=== PATIENT | male | born 1940 | race Caucasian/White ===

== ENCOUNTER → 2017-07-22 | Outpatient (CLI) | payer MEDICARE ==
[~2017-07-22] MED LIST: ASPI1TAB PO; ATEN50TA2 PO; ATOR1TAB19 PO; AUGM875T28 PO; COUM2.5T17 PO; DIGO0.126 OR; LEVO750T PO; MAGN30TA2 PO; NEUR600T PO; NIASPAN PO; RAMI5CAP PO; ROXI1TAB2 PO; TYLE325T5 PO; WARF2.5T38 PO
[2017-07-22 11:26] LABS: BASO % 0.4 % (0.0-1.0); EOS # 0.1 10^3/uL (0.0-0.50); EOS % 2.1 % (0.0-3.0); IMMATURE GRANULOCYTE % 0.2 % (0-0); LYMPH # 0.7 10^3/uL (1.5-4.5); LYMPH % 15.8 % (24.0-44.0); MEAN CORPUSCULAR HEMOGLOBIN 32.3 pg (27.0-33.0); MEAN CORPUSCULAR HGB CONC 33.3 g/dl (32.0-36.5); MEAN CORPUSCULAR VOLUME 97.2 fl (80.0-96.0); MONO # 0.5 10^3/uL (0.0-0.8); MONO % 10.2 % (0.0-5.0); NEUTROPHILS # 3.3 10^3/uL (1.8-7.7); NEUTROPHILS % 71.3 % (36.0-66.0); RED CELL DISTRIBUTION WIDTH 12.3 % (11.5-14.5); WHITE BLOOD COUNT 4.7 10^3/uL (4.0-10.0)
[2017-07-22 11:45] LABS: INR 1.99
[2017-07-22 12:08] LABS: ALBUMIN 3.6 GM/DL (3.2-5.2); ALKALINE PHOSPHATASE 63 U/L (45-117); ALT/SGPT 22 U/L (12-78); ANION GAP 4 MEQ/L (8-16); AST/SGOT 26 U/L (15-37); BILIRUBIN,TOTAL 0.7 MG/DL (0.2-1.0); BLOOD UREA NITROGEN 21 MG/DL (7-18); CALCIUM LEVEL 8.7 MG/DL (8.8-10.2); CARBON DIOXIDE LEVEL 31 MEQ/L (21-32); CHLORIDE LEVEL 105 MEQ/L (98-107); GLOMERULAR FILTRATION RATE > 60.0 (>42); GLUCOSE, FASTING 81 MG/DL (83-110); POTASSIUM SERUM 4.6 MEQ/L (3.5-5.1); SODIUM LEVEL 140 MEQ/L (136-145); TOTAL PROTEIN 6.6 GM/DL (6.4-8.2)
--- NOTE | 2017-07-22 16:42 | REP ---
PA and lateral chest: Comparison is 03/01/2014. There are no acute infiltrates or effusions. The interstitium is normal. There is a stable granuloma inferiorly in the right lung, unchanged. The lung daley otherwise clear. Cardiac size is upper normal. There is a single lead pacemaker / AICD, unchanged. Impression: Negative chest. No interval change. Half Signed by Cesar Stewart MD 07/22/2017 04:34 P
== END ==
LOC: M LAB 10:51
PROVIDERS: ATTEND Internal Medicine Clinical Cardiac Electrophysiology
DX: I42.0 Dilated cardiomyopathy (principal); I48.2 Chronic atrial fibrillation; Z95.810 Presence of automatic (implantable) cardiac defibrillator

== ENCOUNTER → 2018-02-17 | Outpatient (CLI) | payer MEDICARE | LOC: M WUC 17:36 | DX: S60.410A Abrasion of right index finger, initial encounter (principal); X58.XXXA Exposure to other specified factors, initial encounter; Y92.89 Other specified places as the place of occurrence of the external cause | CPT/HCPCS: 73140 ==

== ENCOUNTER 2020-12-15 03:11 | Inpatient (IN) | payer MEDICARE ==
[~2020-12-15] VITALS: Ht 180.3 cm; Wt 83.1 kg
[2020-12-15] VITALS (22 sets, daily range): BP systolic 92–135; BP diastolic 53–78
--- OUTSIDE RECORDS SUMMARY | 2020-12-15 03:15 | CCD | Continuity of Care Document ---
Author Author Jacek KERN RN Organization Unknown Address [address] [place] [address] Phone [phone] Care Team Providers Care Export Manager Name Role Phone Kathy Moreland MD AUTM [phone] Problems Active Problems Provider Date Atrial fibrillation Onset: 08/30/2012 Chronic systolic heart failure Onset: Hyperlipidemia Onset: 08/28/2012 Automatic implantable cardiac defibrillator in situ Onset: 08/28/2012 Primary cardiomyopathy Onset: 08/28/2012 Mitral and aortic incompetence Onset: Benign essential hypertension Javon Lutz MD Onset: 05/2015 Mitral valve disorder Javon Lutz MD Onset: 07/01/2015 Chronic ischemic heart disease Taina Kern RN, LAMP SHADE SEWER Onset: 09/07/2016 Chronic atrial fibrillation Taina Kern RN, LAMP SHADE SEWER Onset: Long-term current use of anticoagulant Javon Lutz MD O nset: 03/01/2017 Mixed hyperlipidemia Javon Lutz MD Onset: 03/01/2017 Preoperative cardiovascular examination Gilmar Sutton MD Onset: 10/02/2018 Paroxysmal atrial fibrillation Sean Vargas MD Onset : 03/02/2018 Social History Type Date Description Comments Sex Unknown ETOH Use Infrequent alcohol Tobacco Use Start: Unknown Patient has never smoked Recreational Drug Use Denies Drug Use Allergies, Adverse Reactions, Alerts Description No Known Drug Allergies Medications Active Medications SIG Qnty Indications Ordering Provide r Date Jantoven 2.5mg Tablets Take One Tablet By Mouth Every Day Or as Directed 100tabs Gilmar Sutton MD 10/20/2020 Carvedilol 25mg Tablets take 1 tablet by mouth twice daily. maximum daily dose is 3 180tabs Lorne Real MD 10/02/2018 Digoxin 250mcg Tablets take 1 tablet by mouth every day 90tadmitry Real MD 01/13/20 16 Ramipril 5mg Capsules take 1 capsule by mouth every day 90caps Frantz Headley MD 01/13/2016 Mag-SR 535(64Mg) mg Tablets ER one po bid Unknown 06/16/2015 Lipitor 10mg Tablets one po q d Unknown 06/16/2015 Aspirin Adult Low Dose 81mg Tablet s DR 1 by mouth every day Unknown Amoxicillin 500mg Capsules 4 tab by mouth prior to dental procedure Unknown Terbinafine HCL 250mg Tablets 1 by mouth once daily Unknown Immunizations Description No Information Available Vital Signs Date Vital Result Comment 03/15/2019 11:53am BP Systolic 100 mmHg BP Diastolic 58 mmHg Heart Rate 72 /min Height 71 inches 5'11" Weight 190.00 lb BMI (Body Mass Index) 26.5 kg/m2 10/02/2018 3:04pm BP Systolic 102 mmHg BP Diastolic 60 mmHg Heart Rate 64 /min Height 71 inches 5'11" Weight 190.00 lb BMI (Body Mass Index) 26.5 kg/m2 Results Test Acquired Date Facility Test Result H/L Range Note Order 08/01/2020 [facility] Icd Remote Check Prof & Tech <pending> Optivol Remote Check Prof & Tech <pending> Procedures Date Code Description Status 08/01/2020 34758 Interrogation Device Implantable Cardiovascular Monitoring System Completed Medical Devices Description No Information Available Encounters Description No Information Available Assessments Date Code Description Provider 08/01/2020 Z95.810 Presence of automatic (implantab le) cardiac defibrillator Margie Gutierrez NP 08/01/2020 I42.0 Dilated cardiomyopathy Margie Urbina NP 08/01/2020 I50.22 Chronic systolic (congestive) he art failure Margie Gutierrez NP Plan of Treatment Future Appointment(s):* 12/15/2020 11:00 am - [facility]Home Draws at [place] [facility] 03/15/2019 - Sean Real MD* Z95.810 Presence of automatic (implantable) cardiac defibrillator * I42.0 Dilated cardiomyopathy * I50.22 Chronic systolic (congestive) heart failure * Z79.01 snf (current) use of anticoagulants * I10 Essential (primary) hypertension * E78.2 Mixed hyperlipidemia * I48.2 Chronic atrial fibrillation * I34.0 Nonrheumatic mitral (valve) insufficiency* Recommendations:* The patient is doing quite well. He shows no signs of active heart failure. His device checks are satisfactory. We will have him return in 12 months for further clinical review, and he will have his echocardiogram repeated prior to that visit. Functional Status Description No Information Available Mental Status Description No Information Available Referrals Description No Information Available
--- OUTSIDE RECORDS SUMMARY | 2020-12-15 03:15 | CCD | Continuity of Care Document ---
Author Author [facility] Organization Unknown Address [address] [place] [address] Phone [phone] Care Team Providers Care Welding Machine Setter Name Role Phone Kathy Moreland MD [facility] [phone] Problems Active Problems Provider Date Atrial fibrillation Onset: 08/30/2012 Chronic systolic heart failure Onset: Hyperlipidemia Onset: 08/28/2012 Automatic implantable cardiac defibrillator in situ Onset: 08/28/2012 Primary cardiomyopathy Onset: 08/28/2012 Mitral and aortic incompetence Onset: Benign essential hypertension Javon Lutz MD Onset: 05/2015 Mitral valve disorder Javon Lutz MD Onset: 07/01/2015 Chronic ischemic heart disease Taina Kern RN, COMMUTATOR ASSEMBLER Onset: 09/07/2016 Chronic atrial fibrillation Taina Kern RN, COMMUTATOR ASSEMBLER Onset: Long-term current use of anticoagulant Javon [...] take 1 tablet by mouth every day 90tabs Sean Real MD 01/13/20 16 Ramipril 5mg Capsules [...] <pending> Procedures Date Code Description Status 08/01/2020 17937 Interrogation Device Implantable Cardiovascular Monitoring System Completed Medical Devices Description No Information Available Encounters Description No Information Available Assessments Date Code Description Provider 08/01/2020 Z95.810 Presence of automatic (implantab le) cardiac defibrillator Margie Gutierrez NP 08/01/2020 I42.0 Dilated cardiomyopathy Margie Urbina NP 08/01/2020 I50.22 Chronic systolic (congestive) he art failure Margie Gutierrez NP Plan of Treatment Future Appointment(s):* 12/08/2020 9:45 am - [facility]Home Draws at [place] [facility] * 12/09/2020 3:30 pm - [place] MANAGER LAB/Device (415) at [place] Office 03/15/2019 - Sean Real MD* Z95.810 Presence of automatic (implantable) cardiac defibrillator * I42.0 Dilated cardiomyopathy * I50.22 Chronic systolic (congestive) heart failure * Z79.01 intermediate (current) use of anticoagulants * I10 Essential [...]
--- OUTSIDE RECORDS SUMMARY | 2020-12-15 03:15 | CCD | Continuity of Care Document ---
Author Author [facility] Organization Unknown Address [address] [place] [address] Phone [phone] Care Team Providers Care Performance Test Consultant Name Role Phone Kathy Moreland MD [facility] [phone] Problems Active Problems Provider Date Atrial fibrillation Onset: 08/30/2012 Chronic systolic heart failure Onset: Hyperlipidemia Onset: 08/28/2012 Automatic implantable cardiac defibrillator in situ Onset: 08/28/2012 Primary cardiomyopathy Onset: 08/28/2012 Mitral and aortic incompetence Onset: Benign essential hypertension Javon Lutz MD Onset: 05/2015 Mitral valve disorder Javon Lutz MD Onset: 07/01/2015 Chronic ischemic heart disease Taina Kern RN, BLOCK ENGRAVER Onset: 09/07/2016 Chronic atrial fibrillation Taina Kern RN, BLOCK ENGRAVER Onset: Long-term current use of anticoagulant Javon [...] <pending> Procedures Date Code Description Status 08/01/2020 79366 Interrogation Device Implantable Cardiovascular Monitoring System Completed Medical Devices Description No Information Available Encounters Description No Information Available Assessments Date Code Description Provider 08/01/2020 Z95.810 Presence of automatic (implantab le) cardiac defibrillator Margie Gutierrez NP 08/01/2020 I42.0 Dilated cardiomyopathy Margie Urbina NP 08/01/2020 I50.22 Chronic systolic (congestive) he art failure Margie Gutierrez NP Plan of Treatment Future Appointment(s):* 12/09/2020 3:30 pm - Taina Kern RN, BLOCK ENGRAVER at [facility] 03/15/2019 - Sean Real MD* Z95.810 Presence of automatic (implantable) cardiac defibrillator * I42.0 Dilated cardiomyopathy * I50.22 Chronic systolic (congestive) heart failure * Z79.01 intermodal owner operator truck driver (current) use of anticoagulants * I10 Essential [...]
--- OUTSIDE RECORDS SUMMARY | 2020-12-15 03:15 | CCD | Continuity of Care Document ---
Author Author [facility] Organization Unknown Address [address] [place] [address] Phone [phone] Care Team Providers Care Wash Oil Pump Operator Helper Name Role Phone Kathy Moreland MD [facility] [phone] Problems Active Problems Provider Date Atrial fibrillation Onset: 08/30/2012 Chronic systolic heart failure Onset: Hyperlipidemia Onset: 08/28/2012 Automatic implantable cardiac defibrillator in situ Onset: 08/28/2012 Primary cardiomyopathy Onset: 08/28/2012 Mitral and aortic incompetence Onset: Benign essential hypertension Javon Lutz MD Onset: 05/2015 Mitral valve disorder Javon Lutz MD Onset: 07/01/2015 Chronic ischemic heart disease Taina Kern RN, MOTOR INSTALLER Onset: 09/07/2016 Chronic atrial fibrillation Taina Kern RN, MOTOR INSTALLER Onset: Long-term current use of anticoagulant Javon [...] <pending> Procedures Date Code Description Status 08/01/2020 86195 Interrogation Device Implantable Cardiovascular Monitoring System Completed Medical Devices Description No Information Available Encounters Description No Information Available Assessments Date Code Description Provider 08/01/2020 Z95.810 Presence of automatic (implantab le) cardiac defibrillator Margie Gutierrez NP 08/01/2020 I42.0 Dilated cardiomyopathy Margie Urbina NP 08/01/2020 I50.22 Chronic systolic (congestive) he art failure Margie Gutierrez NP Plan of Treatment Future Appointment(s):* 12/02/2020 11:15 am - [facility]Home Draws at [place] Coumadin [facility] * 12/09/2020 3:30 pm - [place] MANAGER INTERN/Device (415) at [place] Office 03/15/2019 - Sean Real MD* Z95.810 Presence of automatic (implantable) cardiac defibrillator * I42.0 Dilated cardiomyopathy * I50.22 Chronic systolic (congestive) heart failure * Z79.01 USP (current) use of anticoagulants * I10 Essential [...]
--- OUTSIDE RECORDS SUMMARY | 2020-12-15 03:16 | CCD | Continuity of Care Document ---
Author Author [facility] Organization Unknown Address [address] [place] [address] Phone [phone] Care Team Providers Care Client Services Representative Name Role Phone Kathy Moreland MD AUT [phone] Problems Active Problems Provider Date Atrial fibrillation Onset: 08/30/2012 Chronic systolic heart failure Onset: Hyperlipidemia Onset: 08/28/2012 Automatic implantable cardiac defibrillator in situ Onset: 08/28/2012 Primary cardiomyopathy Onset: 08/28/2012 Mitral and aortic incompetence Onset: Benign essential hypertension Javon Lutz MD Onset: 05/2015 Mitral valve disorder Javon Lutz MD Onset: 07/01/2015 Chronic ischemic heart disease Taina Kern RN, MILKING SYSTEM INSTALLER Onset: 09/07/2016 Chronic atrial fibrillation Taina Kern RN, MILKING SYSTEM INSTALLER Onset: Long-term current use of anticoagulant [...] SIG Qnty Indications Ordering Provide r Date Carvedilol 25mg Tablets take 1 tablet by [...] DR 1 by mouth every day Unknown Warfarin Sodium 2.5mg Tablets take 1 tablet by mouth daily or as directed 100tabs Gilmar purdy MD Amoxicillin 500mg Capsules 4 tab by mouth [...] Test Result H/L Range Note Order 08/01/2020 [facility]iology Icd Remote Check Prof & Tech <pending> Optivol Remote Check Prof & Tech <pending> Order 04/15/2020 [facility] Cardiology Icd Single Program <pending> Optivol In Office <pending> Procedures Date Code Description Status 08/01/2020 31417 Interrogation Device Implantable Cardiovascular Monitoring System Completed 04/15/2020 54632 Implant Cardiovascular Monitorin g System Completed 04/15/2020 66790 Single Lead Implant Cardioverter -Defibrillator Completed Medical Devices Description No Information Available Encounters Description No Information Available Assessments Date Code Description Provider 08/01/2020 Z95.810 Presence of automatic (implantab le) cardiac defibrillator Margie Gutierrez NP 08/01/2020 I42.0 Dilated cardiomyopathy Margie Urbina NP 08/01/2020 I50.22 Chronic systolic (congestive) he art failure Margie Gutierrez NP 04/15/2020 Z95.810 Presence of automatic (implantab le) cardiac defibrillator Taina Kern RN, MILKING SYSTEM INSTALLER 04/15/2020 I48.11 Longstanding persistent atrial f ibrillation Taina Kern RN, MILKING SYSTEM INSTALLER 04/15/2020 I42.0 Dilated cardiomyopathy Taina carrillo RN, MILKING SYSTEM INSTALLER 04/15/2020 I50.22 Chronic systolic (congestive) he art failure Taina Kern RN, MILKING SYSTEM INSTALLER Plan of Treatment Future Appointment(s):* 12/09/2020 3:30 pm - [place] CLINICAL SAFETY SPECIALIST/Device (415) at [place] Office 03/15/2019 - Sean Real MD* Z95.810 Presence of automatic (implantable) cardiac defibrillator * I42.0 Dilated cardiomyopathy * I50.22 Chronic systolic (congestive) heart failure * Z79.01 strapper (current) use of anticoagulants * I10 Essential [...]
--- OUTSIDE RECORDS SUMMARY | 2020-12-15 03:16 | CCD | Continuity of Care Document ---
Author Author [facility] Organization Unknown Address [address] [place] [address] Phone [phone] Care Team Providers Care Dental Coordinator Name Role Phone Kathy Moreland MD AUT [phone] Problems Active Problems Provider Date Atrial fibrillation Onset: 08/30/2012 Chronic systolic heart failure Onset: Hyperlipidemia Onset: 08/28/2012 Automatic implantable cardiac defibrillator in situ Onset: 08/28/2012 Primary cardiomyopathy Onset: 08/28/2012 Mitral and aortic incompetence Onset: Benign essential hypertension Javon Lutz MD Onset: 05/2015 Mitral valve disorder Javon Lutz MD Onset: 07/01/2015 Chronic ischemic heart disease Taina Kenr RN, DRAPERY WORKER Onset: 09/07/2016 Chronic atrial fibrillation Taina Kern RN, DRAPERY WORKER Onset: Long-term current use of anticoagulant Javon Lutz MD O nset: 03/01/2017 Mixed hyperlipidemia Javon Lutz MD Onset: 03/01/2017 Preoperative cardiovascular examination Gilmar Sutton MD Onset: 10/02/2018 Paroxysmal atrial fibrillation Sean aVrgas MD Onset : 03/02/2018 Social History Type [...] Test Result H/L Range Note Order 08/01/2020 [facility] Cardiology Icd Remote Check Prof & Tech <pending> Optivol Remote Check Prof & Tech <pending> Order 04/15/2020 [facility] Cardiology Icd Single Program <pending> Optivol In Office <pending> Procedures Date Code Description Status 08/01/2020 28831 Interrogation Device Implantable Cardiovascular Monitoring System Completed 04/15/2020 58477 Implant Cardiovascular Monitorin g System Completed 04/15/2020 60188 Single Lead Implant Cardioverter -Defibrillator Completed Medical [...] (implantab le) cardiac defibrillator Taina Kern RN, DRAPERY WORKER 04/15/2020 I48.11 Longstanding persistent atrial f ibrillation Taina Kern RN, DRAPERY WORKER 04/15/2020 I42.0 Dilated cardiomyopathy Taina carrillo RN, DRAPERY WORKER 04/15/2020 I50.22 Chronic systolic (congestive) he art failure Taina Kern RN, DRAPERY WORKER Plan of Treatment Future Appointment(s):* 10/06/2020 11:45 am - [facility] Draws at [facility] * 12/09/2020 3:30 pm - [place] TRUCK WASHER/Device (415) at [place] Office 03/15/2019 - Sean Real MD* Z95.810 Presence of automatic (implantable) cardiac defibrillator * I42.0 Dilated cardiomyopathy * I50.22 Chronic systolic (congestive) heart failure * Z79.01 termite technician (current) use of anticoagulants * I10 Essential [...]
--- OUTSIDE RECORDS SUMMARY | 2020-12-15 03:16 | CCD | Continuity of Care Document ---
Author Author [facility] Organization Unknown Address [address] [place] [address] Phone [phone] Care Team Providers Care Licensing Coordinator Name Role Phone Kathy Moreland MD [facility] [phone] Problems Active Problems Provider Date Atrial fibrillation Onset: 08/30/2012 Chronic systolic heart failure Onset: Hyperlipidemia Onset: 08/28/2012 Automatic implantable cardiac defibrillator in situ Onset: 08/28/2012 Primary cardiomyopathy Onset: 08/28/2012 Mitral and aortic incompetence Onset: Benign essential hypertension Javon Lutz MD Onset: 05/2015 Mitral valve disorder Javon Lutz MD Onset: 07/01/2015 Chronic ischemic heart disease Taina Kern RN, CONSERVATION SCIENTIST Onset: 09/07/2016 Chronic atrial fibrillation Taina Kern RN, CONSERVATION SCIENTIST Onset: Long-term current use of anticoagulant Javon Lutz MD O nset: 03/01/2017 Mixed hyperlipidemia Javon Lutz MD Onset: 03/01/2017 Preoperative cardiovascular examination Gilamr Sutton MD Onset: 10/02/2018 Paroxysmal atrial fibrillation [...] <pending> Procedures Date Code Description Status 08/01/2020 18063 Interrogation Device Implantable Cardiovascular Monitoring System Completed Medical Devices Description No Information Available Encounters Description No Information Available Assessments Date Code Description Provider 08/01/2020 Z95.810 Presence of automatic (implantab le) cardiac defibrillator Margie Gutierrez NP 08/01/2020 I42.0 Dilated cardiomyopathy Margie Urbina NP 08/01/2020 I50.22 Chronic systolic (congestive) he art failure Margie Gutierrez NP Plan of Treatment Future Appointment(s):* 11/21/2020 8:30 am - [facility]/Home Draws at [place] [facility] * 12/09/2020 3:30 pm - [place] GRAIN ELEVATOR AGENT/Device (415) at [place] Office 03/15/2019 - Sean Real MD* Z95.810 Presence of automatic (implantable) cardiac defibrillator * I42.0 Dilated cardiomyopathy * I50.22 Chronic systolic (congestive) heart failure * Z79.01 assisted (current) use of anticoagulants * I10 Essential [...]
--- OUTSIDE RECORDS SUMMARY | 2020-12-15 03:16 | CCD | Continuity of Care Document ---
Author Author [facility] Organization Unknown Address [address] [place] [address] Phone [phone] Care Team Providers Care Teletype Operator Name Role Phone Kathy Moreland MD [facility] [phone] Problems Active Problems Provider Date Atrial fibrillation Onset: 08/30/2012 Chronic systolic heart failure Onset: Hyperlipidemia Onset: 08/28/2012 Automatic implantable cardiac defibrillator in situ Onset: 08/28/2012 Primary cardiomyopathy Onset: 08/28/2012 Mitral and aortic incompetence Onset: Benign essential hypertension Javon Lutz MD Onset: 05/2015 Mitral valve disorder Javon Lutz MD Onset: 07/01/2015 Chronic ischemic heart disease Taina Kern RN, PBX INSTALLER Onset: 09/07/2016 Chronic atrial fibrillation Taina Kern RN, PBX INSTALLER Onset: Long-term current use of anticoagulant [...] <pending> Procedures Date Code Description Status 08/01/2020 88848 Interrogation Device Implantable Cardiovascular Monitoring System Completed Medical Devices Description No Information Available Encounters Description No Information Available Assessments Date Code Description Provider 08/01/2020 Z95.810 Presence of automatic (implantab le) cardiac defibrillator Margie Gutierrez NP 08/01/2020 I42.0 Dilated cardiomyopathy Margie Urbina NP 08/01/2020 I50.22 Chronic systolic (congestive) he art failure Margie Gutierrez NP Plan of Treatment Future Appointment(s):* 11/10/2020 11:45 am - [facility]Home Draws at [place] [facility] * 12/09/2020 3:30 pm - [place] WALL WASHER/Device (415) at [place] Office 03/15/2019 - Sean Real MD* Z95.810 Presence of automatic (implantable) cardiac defibrillator * I42.0 Dilated cardiomyopathy * I50.22 Chronic systolic (congestive) heart failure * Z79.01 correction (current) use of anticoagulants * I10 Essential [...]
--- OUTSIDE RECORDS SUMMARY | 2020-12-15 03:16 | CCD | Continuity of Care Document ---
Author Author [facility] Organization Unknown Address [address] [place] [address] Phone [phone] Care Team Providers Care Stained Glass Joiner Name Role Phone Kathy Moreland MD AUT [phone] Problems Active Problems Provider Date Atrial fibrillation Onset: 08/30/2012 Chronic systolic heart failure Onset: Hyperlipidemia Onset: 08/28/2012 Automatic implantable cardiac defibrillator in situ Onset: 08/28/2012 Primary cardiomyopathy Onset: 08/28/2012 Mitral and aortic incompetence Onset: Benign essential hypertension Javon Lutz MD Onset: 05/2015 Mitral valve disorder Javon Lutz MD Onset: 07/01/2015 Chronic ischemic heart disease Taina Kern RN, EXPANDED FUNCTION DENTAL ASSISTANT Onset: 09/07/2016 Chronic atrial fibrillation Taina Kern RN, EXPANDED FUNCTION DENTAL ASSISTANT Onset: Long-term current use of anticoagulant Javon [...] Test Result H/L Range Note Order 08/01/2020 [facility] Cardiology Icd Remote Check Prof & Tech <pending> Optivol Remote Check Prof & Tech <pending> Order 04/15/2020 [facility] Cardiology Icd Single Program <pending> Optivol In Office <pending> Procedures Date Code Description Status 08/01/2020 79847 Interrogation Device Implantable Cardiovascular Monitoring System Completed 04/15/2020 07240 Implant Cardiovascular Monitorin g System Completed 04/15/2020 23251 Single Lead Implant Cardioverter -Defibrillator Completed Medical [...] (implantab le) cardiac defibrillator Taina Kern RN, EXPANDED FUNCTION DENTAL ASSISTANT 04/15/2020 I48.11 Longstanding persistent atrial f ibrillation Taina Kern RN, EXPANDED FUNCTION DENTAL ASSISTANT 04/15/2020 I42.0 Dilated cardiomyopathy Taina carrillo RN, EXPANDED FUNCTION DENTAL ASSISTANT 04/15/2020 I50.22 Chronic systolic (congestive) he art failure Taina Kern RN, EXPANDED FUNCTION DENTAL ASSISTANT Plan of Treatment Future Appointment(s):* 10/20/2020 8:45 am - [facility] Draws at [facility] * 12/09/2020 3:30 pm - [place] DIAL MOUNTER/Device (415) at [place] Office 03/15/2019 - Sean Real MD* Z95.810 Presence of automatic (implantable) cardiac defibrillator * I42.0 Dilated cardiomyopathy * I50.22 Chronic systolic (congestive) heart failure * Z79.01 moth exterminator (current) use of anticoagulants * I10 Essential [...]
--- OUTSIDE RECORDS SUMMARY | 2020-12-15 03:16 | CCD ---
Author Author [facility] Address Unknown Phone Unavailable Care Team Providers Care Cause Analyst Name Role Phone Telly Moreland MD Unavailable Unavailable MeesterTelly MD Unavailable Unavailable MeesterTelly MD Unavailable Unavailable MeesterTelly MD Unavailable Unavailable MeesterTelly MD Unavailable Unavailable MeesterTelly MD Unavailable Unavailable MeesterTelly MD Unavailable Unavailable MeesterTelly MD Unavailable Unavailable MeesterTelly MD Unavailable Unavailable MeesterTelly MD Unavailable Unavailable MeesterTelly MD Unavailable Unavailable MeesterTelly MD Unavailable Unavailable MeesterTelly MD Unavailable Unavailable MeesterTelly MD Unavailable Unavailable MeesterTelly MD Unavailable Unavailable MeesterTelly MD Unavailable Unavailable Meester, Telly Chavez MD Unavailable Unavailable Meester, Telly Chavez MD Unavailable Unavailable Meester, Telly Chavez MD Unavailable Unavailable Meester, Telly Chavez MD Unavailable Unavailable MeesterTelly MD Unavailable Unavailable Meester, Telly Chavez MD Unavailable Unavailable Meester, Telly Chavez MD Unavailable Unavailable Meester, Telly Chavez MD Unavailable Unavailable Meester, Telly Chavez MD Unavailable Unavailable Meester, Telly Chavez MD Unavailable Unavailable Meester, Telly Chavez MD Unavailable Unavailable Meester, Telly Chavez MD Unavailable Unavailable Meester, Telly Chavez MD Unavailable Unavailable Meester, Telly Chavez MD Unavailable Unavailable Meester, Telly Chavez MD Unavailable Unavailable Meester, Telly Chavez MD Unavailable Unavailable Meester, Telly Chavez MD Unavailable Unavailable Meester, Telly Chavez MD Unavailable Unavailable Meester, Telly Chavez MD Unavailable Unavailable Meester, Telly Chavez MD Unavailable Unavailable Meester, Telly Chavez MD Unavailable Unavailable Meester, Telly Chavez MD Unavailable Unavailable Meester, Telly Chavez MD Unavailable Unavailable Meester, Telly Chavez MD Unavailable Unavailable Meester, Telly Chavez MD Unavailable Unavailable Meester, Telly Chavez MD Unavailable Unavailable Meester, Telly Chavez MD Unavailable Unavailable Meester, Telly Chavez MD Unavailable Unavailable Meester, Telly Chavez MD Unavailable Unavailable Meester, Telly Chavez MD Unavailable Unavailable Meester, Telly Chavez MD Unavailable Unavailable Meester, Telly Chavez MD Unavailable Unavailable Meester, Telly Chavez MD Unavailable Unavailable Meester, Telly Chavez MD Unavailable Unavailable Meester, Telly Chavez MD Unavailable Unavailable Meester, Telly Chavez MD Unavailable Unavailable Meester, Telly Chavez MD Unavailable Unavailable Meester, Telly Chavez MD Unavailable Unavailable Meester, Telly Chavez MD Unavailable Unavailable Meester, Telly Chavez MD Unavailable Unavailable Meester, Telly Chavez MD Unavailable Unavailable Meester, Telly Chavez MD Unavailable Unavailable Meester, Telly Chavez MD Unavailable Unavailable Meester, Telly Chavez MD Unavailable Unavailable Meester, Telly Chavez MD Unavailable Unavailable Meester, Telly Chavez MD Unavailable Unavailable Meester, Telly Chavez MD Unavailable Unavailable Meester, Telly Chavez MD Unavailable Unavailable Meester, Telly Chavez MD Unavailable Unavailable Meester, Telly Chavez MD Unavailable Unavailable Meester, Telly Chavez MD Unavailable Unavailable Meester, Telly Chavez MD Unavailable Unavailable DelvalleMaritza barry RESTORATIVE REHAB AIDE Unavailable Unavailable DelvalleMelanieMaritza RESTORATIVE REHAB AIDE Unavailable Unavailable Delvalle, Maritza RESTORATIVE REHAB AIDE Unavailable Unavailable Delvalle, Maritza RESTORATIVE REHAB AIDE Unavailable Unavailable Delvalle, Maritza RESTORATIVE REHAB AIDE Unavailable Unavailable Delvalle, Maritza RESTORATIVE REHAB AIDE Unavailable Unavailable Delvalle, Maritza RESTORATIVE REHAB AIDE Unavailable Unavailable Delvalle, Maritza RESTORATIVE REHAB AIDE Unavailable Unavailable Delvalle, Maritza RESTORATIVE REHAB AIDE Unavailable Unavailable Delvalle, Maritza RESTORATIVE REHAB AIDE Unavailable Unavailable Delvalle, Maritza RESTORATIVE REHAB AIDE Unavailable Unavailable Re-disclosure Warning The records that you are about to access may contain information from federally-assisted alcohol or drug abuse programs. If such information is present, then the following federally mandated warning applies: This information has been disclosed to you from records protected by federal confidentiality rules (42 CFR part 2). The federal rules prohibit you from making any further disclosure of this information unless further disclosure is expressly permitted by the written consent of the person to whom it pertains or as otherwise permitted by 42 CFR part 2. A general authorization for the release of medical or other information is NOT sufficient for this purpose. The Federal rules restrict any use of the information to criminally investigate or prosecute any alcohol or drug abuse patient.The records that you are about to access may contain highly sensitive health information, the redisclosure of which is protected by Article 27-F of the [facility] Public Health law. If you continue you may have access to information: Regarding HIV / AIDS; Provided by facilities licensed or operated by the [facility] Office of Mental Health; or Provided by the [facility] Office for People With Developmental Disabilities. If such information is present, then the following [facility] mandated warning applies: This information has been disclosed to you from confidential records which are protected by state law. State law prohibits you from making any further disclosure of this information without the specific written consent of the person to whom it pertains, or as otherwise permitted by law. Any unauthorized further disclosure in violation of state law may result in a fine or custodial sentence or both. A general authorization for the release of medical or other information is NOT sufficient authorization for further disc losure. Family History Family Member Name Family Member Gender Family Member Status Date o f Status Description Data Source(s) Unknown Male Problem [facility] Unknown [facility] Unknown Unknown Problem [facility] Unknown Unknown Problem [facility] ([facility]) father Unknown Female Encounters Encounter Providers Location Date Indications Data Source(s ) Outpatient Attender: Maritza acuña 08/01/2020 12:30:00 PM EDT [facility] ([facility]) Outpatient Attender: Kathy Moreland MD 05/2020 02:10:00 PM EDT - 07/01/2020 02:11:00 PM EDT E78.00, I42.9 [facility] E78.00, I42.9 Patient discharged. Outpatient Attender: Kathy Baires Office 05/2020 10:00:00 AM EDT [facility] ([facility] Outpatient Attender: Kathy Baires Office 09:15:00 AM EDT [facility] ([facility] Medications Medication Brand Name Start Date Product Form Dose Route Admi nistrative Instructions Pharmacy Instructions Status Indications Reaction Description Data Source(s) Warfarin Sodium 2.5 MG Oral Tablet [Jantoven] Jantoven 10/20/2020 12:00:00 AM EST active [facility]) terbinafine 250 MG Oral Tablet Terbinafine HCL 07/01/2020 12:00:00 AM EDT ORAL active [facility] ([facility] Doxycycline Monohydrate 100 MG Oral Capsule Doxycycline Sullivan hydrate 11/16/2019 12:00:00 AM EST ORAL active M EDENT ([facility], [facility]) Insurance Providers Payer name Policy type / Coverage type Policy ID Covered democrat ID Covered democrat's relationship to coy Policy Coy Plan Information AARP HEALTH CARE OPTIONS [id number] SP [id number] MEDICARE [id number] SP [id number] A MEDICARE B [id number] P [id number] MEDICARE A [id number] P [id number] [facility] AARP [id number] P [id number] Aarp Commercial [id number] Self [id number] [place] Primary [id number] Self [id number] Aarp Commercial [id number] Self [id number] Medicare [facility] Medicare Primary [id number] Self [id number] DME Jurisdiction A NHIC C [id number] SELF [id number] [facility] AARP Supplemental F [id number] SELF [id number] Medicare C [id number] SELF [id number] Medicare C [id number] SELF [id number] MEDICARE A [id number] P [id number] First [place] Commercial [id number] Self [id number] [place] Commercial [id number] Self [id number] BS Of [place] Medigap Part B [id number] Self [id number] Aarp Health Care Options Medigap Part B [id number] Self [id number] [place] Primary [id number] Self [id number] Aarp Health Care Options Medigap Part B [id number] Self [id number] Medicare Natl Gov't Servi Medicare Primary [id number] Self [id number] AARP O [id number] S [id number] MEDICARE C [id number] S [id number] A Aarp Commercial [id number] Self [id number] [place] Medicare Primary [id number] Self [id number] Aarp Health Care Options Medigap Part B [id number] Self [id number] Medicare Natl Gov't Servi Medicare Primary [id number] Self [id number] Aarp Health Care Options Medigap Part B [id number] Self [id number] Medicare Natl Gov't Servi Medicare Primary [id number] Self [id number] Aarp Medigap Part B [id number] Self [id number] Medicare [facility] Medicare Primary [id number] Self [id number] Aarp Medigap Part B [id number] Self [id number] Medicare [facility] Medicare Primary [id number] Self [id number] AARP HEALTH CARE OPTIONS [id number] Patient [id number] MEDICARE [id number] Patient [id number] Aarp Medigap Part B [id number] Self [id number] Medicare [facility] Medicare Primary [id number] Self [id number] FIRST UNITED CAMBODIAN [id number] SP [id number] Aarp Commercial [id number] Self [id number] Medicare [place] Primary [id number] Self [id number] BLUE CROSS OUT OF STATE [id number] Patient [id number] Aarp Medigap Part B [id number] Self [id number] Medicare [facility] Medicare Primary [id number] Self [id number] Aarp Health Care Options Medigap Part B [id number] Self [id number] Medicare Natl Gov't Serv Medicare Primary [id number] Self [id number] Aarp Commercial [id number] Self [id number] Medicare [place] Primary [id number] Self [id number] Aarp Commercial Self Medicare [facility] Medicare Primary Self First [place](pr) Medigap Part B Self Medicare [facility] Medicare Primary Self FIRST UNITED CAMBODIAN [id number] P [id number] BS OF [place] [id number] P [id number] AARP HEALTH CARE OPTIONS -O/P [id number] 18 [id number] AARP HEALTH CARE OPTIONS -O/P UNAVAILABLE UNAVAILABLE BLUE CROSS BLUE [facility]-O/P [id number] 18 [id number] MEDICARE -O/P [id number] 18 [id number] FIRST UNITED CAM[employer] S [id number] S [id number] BCBS [place] PPO 302/307 [id number] SP [id number] A Problems, Conditions, and Diagnoses Code Display Name Description Problem Type Effective Dates Data Source(s) I42.9 Cardiomyopathy, unspecified CARDIOMYOPATHY, UNSPECIFIE D Diagnosis 07/01/2020 02:10:00 PM EDT [facility] E78.00 PURE HYPERCHOLESTEROLEMIA, UNSPECIFIED P URE HYPERCHOLESTEROLEMIA, UNSPECIFIED Diagnosis 07/01/2020 02:10:00 PM EDT [facility] Surgeries/Procedures Procedure Description Date Indications Data Source(s) Interrogation Device Implantable Cardiovascular Monitoring S ystem 08/01/2020 12:00:00 AM EDT MED[facility] ([facility]) Single Lead Implant Cardioverter-Defibrillator 020 12:00:00 AM EDT MED[facility] ([facility]) Implant Cardiovascular Monitoring System 04/15/2020 12 :00:00 AM EDT MED[facility] ([facility]) Echocardiography, Tranthoracic Complete Image Documentation 03/18/2020 12:00:00 AM EDT MED[facility] ([facility]) Interrogation Device Implantable Cardiovascular Monitoring S ystem 01/04/2020 12:00:00 AM EDT MED[facility] ([facility]) Results ID Date Data Source [id number] 08/01/2020 09:15:00 AM EDT MED[facility] ([facility]) Name Value Range Interpretation Code Description Data Rama rce(s) Supporting Document(s) Icd Remote Check Prof & Tech Laboratory test result MEDENT ([facility]) Optivol Remote Check Prof & Tech Laboratory test result MED[facility] ([facility]) ID Date Data Source [id number] 07/01/2020 10:34:00 AM EDT [facility] ([facility] Name Value Range Interpretation Code Description Data Rama rce(s) Supporting Document(s) Sodium [Moles/volume] in Serum or Plasma 140 mmol/L 136-145 [facility] ([facility] Potassium [Moles/volume] in Serum or Plasma 4.3 mmol/L 3.4-5.0 [facility] ([facility] Chloride [Moles/volume] in Serum or Plasma 100 mmol/L 98-107 [facility] ([facility] Carbon dioxide, total [Moles/volume] in Serum or Plasma 28 mmol/L 22 -29 [facility] ([facility] Glucose [Mass/volume] in Serum or Plasma 94 mg/dL 70-99 [facility] ([facility] Anion Gap 16 mmol/L 10-20 [facility] ([facility] Creatinine 0.7 mg/dL 0.7-1.2 MED[facility] ([facility] Protein [Mass/volume] in Serum or Plasma 7.2 g/dL 6.4-8.3 [facility] ([facility] Urea nitrogen [Mass/volume] in Serum or Plasma 15 mg/dL 6-20 [facility] ([facility] Calcium [Mass/volume] in Serum or Plasma 9.6 mg/dL 8.8-10.2 [facility] ([facility] Bilirubin.total [Mass/volume] in Serum or Plasma 1.1 mg/dL 0.0-1.2 MED[facility] ([facility] Albumin [Mass/volume] in Serum or Plasma 4.3 g/dL 3.5-5.2 [facility] ([facility] Alkaline phosphatase [Enzymatic activity/volume] in Serum or Plasma 85 U/L 40-129 [facility] Alanine aminotransferase [Enzymatic activity/volume] in Seru m or Plasma 18 U/L 0-41 [facility] Aspartate aminotransferase [Enzymatic activity/volume] in Serum or Plasma 29 U/L 0-40 [facility] ([facility] ID Date Data Source [id number] 07/01/2020 10:34:00 AM EDT [facility] ([facility] Name Value Range Interpretation Code Description Data Rama rce(s) Supporting Document(s) HDL Cholesterol 37 mg/dL [facility] ([facility] <content>Adult Reference Ranges:</conten t>
<content>Low HDL (major risk factor for CHD) < 40 mg/dL</content>
<content>High HDL ("negative" risk factor for CHD) > 60 mg/dL</content>
<content></content> Triglyceride [Mass/volume] in Serum or Plasma 48 mg/dL MED[facility] ([facility] Cholesterol [Mass/volume] in Serum or Plasma 109 mg/dL MED[facility] ([facility] Adult Reference Ranges: Desirable Cholesterol less than 200 mg/dL Borderline High Cholesterol 200 - 239 mg/dL High Cholesterol greater than 240 mg/dL Cholesterol in LDL [Mass/volume] in Serum or Plasma by calculation 62 mg/dL [facility] ([facility] <content>Adult Reference Ranges:</conten t>
<content>Optimal LDL Cholesterol < 100 mg/dL</content>
<content>Near Optimal/above LDL Cholesterol 100 - 129 mg/dL</content>
<content>Borderline High LDL Cholesterol 130 - 150 mg/dL</content>
<content>High LDL Cholesterol 160 - 189 mg/dL</content>
<content>Very High LDL Cholesterol >189 mg/dL</content>
<content></content> ID Date Data Source [id number] 07/01/2020 02:59:00 PM EDT [facility] Name Value Range Interpretation Code Description Data Rama rce(s) Supporting Document(s) SODIUM 140 MMOL/L 136-145 [facility] C enter POTASSIUM 4.3 MMOL/L 3.4-5.0 [facility] C enter CHLORIDE 100 MMOL/L 98-107 [facility] C enter CO2 28 MMOL/L 22-29 [facility] nter ANION GAP 16 MMOL/L 10-20 [facility] nter GLUCOSE 94 MG/DL 70-99 [facility] nter CREATININE 0.7 MG/DL 0.7-1.2 [facility] C enter BUN 15 MG/DL 6-20 [facility] nter CALCIUM 9.6 MG/DL 8.8-10.2 [facility] nter TOTAL PROTEIN 7.2 G/DL 6.4-8.3 [facility] ALBUMIN 4.3 G/DL 3.5-5.2 [facility] nter BILIRUBIN,TOTAL 1.1 MG/DL 0.0-1.2 [facility] ALKALINE PHOSPHATASE 85 U/L 40-129 [facility] AST 29 U/L 0-40 [facility] nter ALT 18 U/L 0-41 [facility] nter ID Date Data Source [id number] 07/01/2020 02:59:00 PM EDT [facility] Name Value Range Interpretation Code Description Data Rama rce(s) Supporting Document(s) CHOLESTEROL 109 MG/DL [facility] Adult Reference Ranges: Desirable Cho lesterol less than 200 mg/dL Borderline High Cholesterol 200 - 239 mg/dL High Cholesterol greater than 240 mg/dL TRIGLYCERIDES 48 MG/DL [facility] HDL CHOLESTEROL 37 MG/DL [facility] Adult Reference Ranges: Low HDL (major risk factor for CHD) < 40 mg/dL High HDL ("negative" risk factor for CHD) > 60 mg/dL LDL CHOLESTEROL (CALCULATED) 62 MG/DL [facility] Adult Reference Ranges: Optimal LDL C holesterol < 100 mg/dL Near Optimal/above LDL Cholesterol 100 - 129 mg/dL Borderline High LDL Cholesterol 130 - 150 mg/dL High LDL Cholesterol 160 - 189 mg/dL Very High LDL Cholesterol >189 mg/dL ID Date Data Source [id number] 04/15/2020 04:03:00 PM EDT [facility] ([facility]) Name Value Range Interpretation Code Description Data Rama rce(s) Supporting Document(s) Optivol In Office Laboratory test result [facility] ([facility]) Icd Single Program Laboratory test result [facility] ([facility]) ID Date Data Source [id number] 03/18/2020 10:42:00 AM EDT [facility] ([facility]) Name Value Range Interpretation Code Description Data Rama rce(s) Supporting Document(s) Echocardiogram Laboratory test result ME DENT ([facility]) ID Date Data Source [id number] 01/04/2020 01:44:00 PM EDT [facility] ([facility]) Name Value Range Interpretation Code Description Data Rama rce(s) Supporting Document(s) Optivol Remote Check Prof & Tech Laboratory test result [facility] ([facility]) Icd Remote Check Prof & Tech Laboratory test result [facility] ([facility]) Procedure Social History Code Duration Value Status Description Data Source(s ) Smoking 08/01/2020 12:00:00 AM EDT Patient has never smoked co mpleted Patient has never smoked MED[facility] ([facility]) Vital Signs ID Date Data Source UNK Name Value Range Interpretation Code Description Data Source(s) Body mass index (BMI) [Ratio] 25.1 kg/m2 25.1 k g/m2 MED[facility] ([facility]) Body height 71 [in_i] 71 [in_i] MEDENT ([facility]) 5'11" Body weight 180.00 [lb_av] 180.00 [lb_av] MEDEN T ([facility]) Body temperature 97.1 [degF] 97.1 [degF] MEDENT ([facility]) Oxygen saturation in Arterial blood by Pulse oximetry 98 % 98 % MED[facility] ([facility], [facility]) Respiratory rate 12 /min 12 /min [facility] ( [facility], [facility]) Heart rate 73 /min 73 /min [facility] Diastolic blood pressure 60 mm[Hg] 60 mm[Hg] [facility]) Systolic blood pressure 104 mm[Hg] 104 mm[Hg] [facility] ([facility], [facility]) Body weight 185.12 [lb_av] 185.12 [lb_av] MEDEN T ([facility] Heart rate 54 /min 54 /min [facility] ([facility] Diastolic blood pressure 70 mm[Hg] 70 mm[Hg] [facility] ([facility] Systolic blood pressure 110 mm[Hg] 110 mm[Hg] [facility] ([facility] Body mass index (BMI) [Ratio] 25.7 kg/m2 25.7 k g/m2 [facility]) Body height 71.5 [in_i] 71.5 [in_i] [facility] ([facility], [facility]) 5'11.50" Body weight 187.00 [lb_av] 187.00 [lb_av] MEDEN T ([facility], [facility]) Body temperature 98.8 [degF] 98.8 [degF] [facility]) Oxygen saturation in Arterial blood by Pulse oximetry 98 % 98 % MED[facility] ([facility], [facility]) Respiratory rate 17 /min 17 /min [facility] ( [facility], [facility]) Heart rate 89 /min 89 /min [facility] Diastolic blood pressure 56 mm[Hg] 56 mm[Hg] [facility] ([facility], [facility]) Systolic blood pressure 95 mm[Hg] 95 mm[Hg] [facility])
--- OUTSIDE RECORDS SUMMARY | 2020-12-15 03:16 | CCD | Continuity of Care Document ---
Author Author [facility] on [facility] Organization Unknown Address [address] [place] [address] Phone [phone] Care Team Providers Care Od Grinder Operator Name Role Phone Kathy Moreland MD [facility] [phone] Problems Active Problems Provider Date Atrial fibrillation Onset: 08/30/2012 Chronic systolic heart failure Onset: Hyperlipidemia Onset: 08/28/2012 Automatic implantable cardiac defibrillator in situ Onset: 08/28/2012 Primary cardiomyopathy Onset: 08/28/2012 Mitral and aortic incompetence Onset: Benign essential hypertension Javon Lutz MD Onset: 05/2015 Mitral valve disorder Javon Lutz MD Onset: 07/01/2015 Chronic ischemic heart disease Taina Kern RN, PRINTED CIRCUIT BOARDS LAMINATOR Onset: 09/07/2016 Chronic atrial fibrillation Taina Kern RN, PRINTED CIRCUIT BOARDS LAMINATOR Onset: Long-term current use of anticoagulant Javon [...] <pending> Procedures Date Code Description Status 08/01/2020 66567 Interrogation Device Implantable Cardiovascular Monitoring System Completed Medical Devices Description No Information Available Encounters Description No Information Available Assessments Date Code Description Provider 08/01/2020 Z95.810 Presence of automatic (implantab le) cardiac defibrillator Margie Gutierrez NP 08/01/2020 I42.0 Dilated cardiomyopathy Margie Urbina NP 08/01/2020 I50.22 Chronic systolic (congestive) he art failure Margie Gutierrez NP Plan of Treatment Future Appointment(s):* 11/03/2020 8:30 am - [facility] * 12/09/2020 3:30 pm - [facility]INGER[facility] TECHNIC[facility]/Device (415) at [facility] 03/15/2019 - Sean Real MD* Z95.810 [...]
[2020-12-15] MEDS ORDERED: RAMI1CAP24 PO (03:40)
[2020-12-15] MEDS ORDERED: JANT2.5T PO (03:40)
[2020-12-15] MEDS ORDERED: CARV25TA PO (03:40)
[2020-12-15 03:52] LABS: BASO % 0.3 % (0.0-1.0); EOS % 0.5 % (0.0-3.0); HEMATOCRIT 21.7 % (42.0-52.0); HEMOGLOBIN 7.1 g/dl (13.5-17.5); LYMPH # 1.1 10^3/uL (1.5-5.0); LYMPH % 13.5 % (24.0-44.0); MEAN CORPUSCULAR HEMOGLOBIN 31.7 pg (27.0-33.0); MEAN CORPUSCULAR HGB CONC 32.7 g/dl (32.0-36.5); MEAN CORPUSCULAR VOLUME 96.9 fl (80.0-96.0); MONO # 0.6 10^3/uL (0.0-0.8); MONO % 7.9 % (2.0-8.0); NEUTROPHILS # 6.1 10^3/uL (1.5-8.5); PLATELET COUNT, AUTOMATED 179 10^3/uL (150-450); RED BLOOD COUNT 2.24 10^6/uL (4.30-6.10); WHITE BLOOD COUNT 7.9 10^3/uL (4.0-10.0)
[2020-12-15] MEDS ORDERED: LIDOCAINE 1% MDV 20ML VIAL SC ONE (04:00)
[2020-12-15] MEDS ORDERED: NS 1,000 ML IV ONE (04:00)
[2020-12-15] MEDS ORDERED: BOOSTRIX/ADACEL VACCINE (DIPHTH/PERTUSS/ACELL/TETANUS) 0.5ML SYR IM ONE (04:00)
[2020-12-15 04:22] LABS: INR 4.05; PROTHROMBIN TIME 40.3 SECONDS (12.5-14.3)
[2020-12-15 04:23] LABS: PARTIAL THROMBOPLASTIN TIME 39.9 SECONDS (24.2-38.5)
[2020-12-15 04:24] LABS: ALBUMIN 2.3 GM/DL (3.2-5.2); ALT/SGPT 15 U/L (12-78); BILIRUBIN,DIRECT 0.1 MG/DL (0.0-0.2); BILIRUBIN,TOTAL 0.4 MG/DL (0.2-1.0); BLOOD UREA NITROGEN 34 MG/DL (7-18); CALCIUM LEVEL 7.2 MG/DL (8.8-10.2); CARBON DIOXIDE LEVEL 28 MEQ/L (21-32); CHLORIDE LEVEL 104 MEQ/L (98-107); CREATININE FOR GFR 0.88 MG/DL (0.70-1.30); GLOMERULAR FILTRATION RATE > 60.0 (>35); GLUCOSE, FASTING 156 MG/DL (70-100); LIPASE 85 U/L (73-393); POTASSIUM SERUM 5.5 MEQ/L (3.5-5.1); SODIUM LEVEL 137 MEQ/L (136-145); TOTAL PROTEIN 4.4 GM/DL (6.4-8.2)
[2020-12-15 04:47] LABS: CK-MB VALUE MASS 2.6 NG/ML (<3.6); CPK CREATINE PHOSPHOKINASE 60 U/L (39-308); MB/CK RELATIVE INDEX 4.33 (< OR =4); TROPONIN I 0.02 NG/ML (< 0.10)
--- NOTE | 2020-12-15 05:17 | REPVR ---
PROCEDURE INFORMATION: Exam: XR Chest, 1 View Exam date and time: 12/15/2020 4:50 AM Age: 80 years old Clinical indication: Chest pain; Type not specified; Additional info: Trauma TECHNIQUE: Imaging protocol: XR of the chest Views: 1 view. COMPARISON: CR Chest, 2 view PA, Lat 07/22/2017 11:17 AM FINDINGS: Tubes, catheters and devices: There is a left-sided AICD/pacemaker. Lungs: There is a calcified granuloma in the right lower lung field. There is no significant consolidation. Pleural spaces: No pleural effusions or pneumothorax identified. Heart/Mediastinum: The heart is normal in size. Bones/joints: There is no evidence of acute fracture. IMPRESSION: No evidence of acute pleural or parenchymal disease. Electronically signed by: Lamar Edgar On 12/15/2020 05:17:39 AM
--- OUTSIDE RECORDS SUMMARY | 2020-12-15 05:32 | CCD ---
Author Author [facility] Address Unknown Phone Unavailable Care Team Providers Care Corn Sheller Operator Name Role Phone Telly Moreland MD Unavailable [...] Unavailable Meester, Telly Chavez MD Unavailable Unavailable Delvalle Maritza BOOK REPAIRER Unavailable Unavailable Delvalle, Maritza BOOK REPAIRER Unavailable Unavailable Delvalle, Maritza BOOK REPAIRER Unavailable Unavailable Delvalle, Maritza BOOK REPAIRER Unavailable Unavailable Delvalle, Maritza BOOK REPAIRER Unavailable Unavailable Delvalle, Maritza BOOK REPAIRER Unavailable Unavailable Delvalle, Maritza BOOK REPAIRER Unavailable Unavailable Delvalle, Maritza BOOK REPAIRER Unavailable Unavailable Delvalle, Maritza BOOK REPAIRER Unavailable Unavailable Delvalle, Maritza BOOK REPAIRER Unavailable Unavailable Delvalle, Maritza BOOK REPAIRER Unavailable Unavailable Re-disclosure Warning The records that [...] is protected by Article 27-F of the [facility] Public Health law. If you continue you may have access to information: Regarding HIV / AIDS; Provided by facilities licensed or operated by the [facility] Office of Mental Health; or Provided by the [facility] Office for People With Developmental Disabilities. If such information is present, then the following [facility] mandated warning applies: This information has [...] law may result in a fine or senior care sentence or both. A general authorization for the release of medical or other information is NOT sufficient authorization for further disc losure. Family History Family Member Name Family Member Gender Family Member Status Date o f Status Description Data Source(s) Unknown Male Problem [facility] ([facility]) Unknown Male Problem [facility] ([facility] Unknown Unknown Problem [facility] Unknown Unknown Problem [facility] ([facility] father Unknown Female Encounters Encounter Providers Location Date Indications Data Source(s ) Outpatient Attender: Maritza acuña 08/01/2020 12:30:00 PM EDT [facility] ([facility]) Outpatient Attender: Kathy Moreland MD 05/2020 02:10:00 PM EDT - 07/01/2020 02:11:00 PM EDT E78.00, I42.9 [facility] E78.00, I42.9 Patient discharged. Outpatient Attender: Kathy Baires Office 05/2020 10:00:00 AM EDT [facility] Attender: Kathy Baires Office 09:15:00 AM EDT [facility] Medications Medication Brand Name Start Date Product Form Dose Route Admi nistrative Instructions Pharmacy Instructions Status Indications Reaction Description Data Source(s) Warfarin Sodium 2.5 MG Oral Tablet [Jantoven] Jantoven 10/20/2020 12:00:00 AM EST active [facility]) terbinafine 250 MG Oral Tablet Terbinafine HCL 07/01/2020 12:00:00 AM EDT ORAL active MED[facility] ([facility] Doxycycline Monohydrate 100 MG Oral Capsule Doxycycline Castro hydrate 11/16/2019 12:00:00 AM EST ORAL active M EDENT ([facility], [facility]) Insurance Providers Payer name Policy type / Coverage type Policy ID Covered democrat ID Covered democrat's relationship to coy Policy Coy Plan Information AARP HEALTH CARE OPTIONS [id number] SP [id number] MEDICARE [id number] SP [id number] A MEDICARE B [id number] P [id number] MEDICARE A [id number] P [id number] [facility] AARP [id number] P [id number] Aarp Commercial [id number] Self [id number] [place] Primary [id number] Self [id number] Aarp Commercial [id number] Self [id number] [place] Primary [id number] Self [id number] DME Jurisdiction A NHIC C [id number] SELF [id number] [facility] AARP Supplemental F [id number] SELF [id number] Medicare C [id number] SELF [id number] Medicare C [id number] SELF [id number] A MEDICARE A [id number] P [id number] [facility] Commercial [id number] Self [id number] [place] Commercial [id number] Self [id number] [facility]ig[facility] Part B [id number] Self [id number] Aarp Health Care Options Medigap Part B [id number] Self [id number] [place] Primary [id number] Self [id number] Aarp Health Care Options Medigap Part B [id number] Self [id number] Medicare Natl Gov't Servi Medicare Primary [id number] Self [id number] AARP O [id number] S [id number] MEDICARE C [id number] S [id number] A Aarp Commercial [id number] Self [id number] [place] Primary [id number] Self [id number] Aarp Health Care Options Medigap Part B [id number] Self [id number] Medicare [place] Gov't Servi Medicare Primary [id number] Self [id number] Aarp Health Care Options Medigap Part B [id number] Self [id number] Medicare [place] Gov't Servi Medicare Primary [id number] Self [id number] Aarp Medigap Part B [id number] Self [id number] Medicare [facility] Medicare Primary [id number] Self [id number] Aarp Medigap Part B [id number] Self [id number] Medicare [facility] Medicare Primary [id number] Self [id number] AARP HEALTH CARE OPTIONS [id number] Patient [id number] MEDICARE [id number] Patient [id number] Aarp Medigap Part B [id number] Self [id number] Medicare [facility] Medicare Primary [id number] Self [id number] FIRST [place] [id number] SP [id number] Aarp Commercial [id number] Self [id number] [place] Primary [id number] Self [id number] BLUE CROSS OUT OF STATE [id number] Patient [id number] Aarp Medigap Part B [id number] Self [id number] Medicare [facility] Medicare Primary [id number] Self [id number] Aarp Health Care Options Medigap Part B [id number] Self [id number] Medicare Natl Gov't Serv Medicare Primary [id number] Self [id number] Aarp Commercial [id number] Self [id number] [place] Primary [id number] Self [id number] Aarp Commercial Self Medicare [facility] Medicare Primary Self [employer] [place](pr) Medigap Part B Self Medicare [facility] Medicare Primary Self [employer] [place] [id number] P [id number] BS [place] [id number] P [id number] AARP HEALTH CARE OPTIONS -O/P [id number] 18 [id number] AARP HEALTH CARE OPTIONS -O/P UNAVAILABLE UNAVAILABLE BLUE CROSS [facility]-O/P [id number] 18 [id number] MEDICARE -O/P [id number] 18 [id number] [employer] [place] S [id number] S [id number] BCBS [place] PPO 302/307 [id number] SP [id number] A Problems, Conditions, and Diagnoses Code Display Name Description Problem Type Effective Dates Data Source(s) I42.9 Cardiomyopathy, unspecified CARDIOMYOPATHY, UNSPECIFIE D Diagnosis 07/01/2020 02:10:00 PM EDT [facility] E78.00 PURE HYPERCHOLESTEROLEMIA, UNSPECIFIED P URE HYPERCHOLESTEROLEMIA, UNSPECIFIED Diagnosis 07/01/2020 02:10:00 PM EDT [facility] Surgeries/Procedures Procedure Description Date Indications Data Source(s) Interrogation Device Implantable Cardiovascular Monitoring S ystem 08/01/2020 12:00:00 AM EDT MEDENT ([facility]) Single Lead Implant Cardioverter-Defibrillator 020 12:00:00 AM EDT MED[facility] ([facility]) Implant Cardiovascular Monitoring System 04/15/2020 12 :00:00 AM EDT MED[facility] ([facility]) Echocardiography, Tranthoracic Complete Image Documentation 03/18/2020 12:00:00 AM EDT MED[facility] ([facility]) Interrogation Device Implantable Cardiovascular Monitoring S ystem 01/04/2020 12:00:00 AM EDT MED[facility] ([facility] Cardiology) Results ID Date Data Source [id number] 08/01/2020 09:15:00 AM EDT MEDENT ([facility] C ardiology) Name Value Range Interpretation Code Description Data Rama rce(s) Supporting Document(s) Icd Remote Check Prof & Tech Laboratory test result MEDENT ([facility] Card[facility]) Optivol Remote Check Prof & Tech Laboratory test result MEDENT ([facility]) ID Date Data Source [id number] 07/01/2020 10:34:00 AM EDT MED[facility] ([facility] Name Value Range Interpretation Code Description Data Rama rce(s) Supporting Document(s) Sodium [Moles/volume] in Serum or Plasma 140 mmol/L 136-145 [facility] ([facility] Potassium [Moles/volume] in Serum or Plasma 4.3 mmol/L 3.4-5.0 [facility] ([facility] Chloride [Moles/volume] in Serum or Plasma 100 mmol/L 98-107 [facility] ([facility] Carbon dioxide, total [Moles/volume] in Serum or Plasma 28 mmol/L 22 -29 [facility] ([facility] Glucose [Mass/volume] in Serum or Plasma 94 mg/dL 70-99 [facility] ([facility] Anion Gap 16 mmol/L 10-20 [facility] ([facility] Creatinine 0.7 mg/dL 0.7-1.2 [facility] ([facility] Protein [Mass/volume] in Serum or Plasma 7.2 g/dL 6.4-8.3 [facility] ([facility] Urea nitrogen [Mass/volume] in Serum or Plasma 15 mg/dL 6-20 [facility] ([facility] Calcium [Mass/volume] in Serum or Plasma 9.6 mg/dL 8.8-10.2 [facility] Bilirubin.total [Mass/volume] in Serum or Plasma 1.1 mg/dL 0.0-1.2 [facility] ([facility] Albumin [Mass/volume] in Serum or Plasma 4.3 g/dL 3.5-5.2 [facility] ([facility] Alkaline phosphatase [Enzymatic activity/volume] in Serum or Plasma 85 U/L 40-129 [facility] ([facility] Alanine aminotransferase [Enzymatic activity/volume] in Seru m or Plasma 18 U/L 0-41 [facility] ([facility] Aspartate aminotransferase [Enzymatic activity/volume] in Serum or Plasma 29 U/L 0-40 [facility] ([facility] ID Date Data Source [id number] 07/01/2020 10:34:00 AM EDT [facility] Name Value Range Interpretation Code Description Data Rama rce(s) Supporting Document(s) HDL Cholesterol 37 mg/dL [facility] ([facility] <content>Adult Reference Ranges:</conten t>
<content>Low HDL (major risk factor for CHD) < 40 mg/dL</content>
<content>High HDL ("negative" risk factor for CHD) > 60 mg/dL</content>
<content></content> Triglyceride [Mass/volume] in Serum or Plasma 48 mg/dL MED[facility] ([facility] Cholesterol [Mass/volume] in Serum or Plasma 109 mg/dL MED[facility] ([facility] Adult Reference Ranges: Desirable Cholesterol less than 200 mg/dL Borderline High Cholesterol 200 - 239 mg/dL High Cholesterol greater than 240 mg/dL Cholesterol in LDL [Mass/volume] in Serum or Plasma by calculation 62 mg/dL [facility] <content>Adult Reference Ranges:</conten t>
<content>Optimal LDL Cholesterol < 100 mg/dL</content>
<content>Near Optimal/above LDL Cholesterol 100 - 129 mg/dL</content>
<content>Borderline High LDL Cholesterol 130 - 150 mg/dL</content>
<content>High LDL Cholesterol 160 - 189 mg/dL</content>
<content>Very High LDL Cholesterol >189 mg/dL</content>
<content></content> ID Date Data Source [id number] 07/01/2020 02:59:00 PM EDT [facility] Name Value Range Interpretation Code Description Data Rama rce(s) Supporting Document(s) SODIUM 140 MMOL/L 136-145 [facility] enter POTASSIUM 4.3 MMOL/L 3.4-5.0 [facility] C enter CHLORIDE 100 MMOL/L 98-[address] [facility] enter CO2 28 MMOL/L 22-[address] [facility] nter ANION GAP 16 MMOL/L 10-[address] [facility] nter GLUCOSE 94 MG/DL 70-[address] [facility] nter CREATININE 0.7 MG/DL 0.7-1.2 [facility] C enter BUN 15 MG/DL 6-[address] [facility] nter CALCIUM 9.6 MG/DL 8.8-10.[address] [facility] nter TOTAL PROTEIN 7.2 G/DL 6.4-8.3 [facility] e Center ALBUMIN 4.3 G/DL 3.5-5.[address] [facility] nter BILIRUBIN,TOTAL 1.1 MG/DL 0.0-1.2 [facility] are Center ALKALINE PHOSPHATASE 85 U/L 40-129 [facility] AST 29 U/L 0-[address] [facility] nter ALT 18 U/L 0-[address] [facility] nter ID Date Data Source [id number] 07/01/2020 02:59:00 PM EDT [facility] Name Value Range Interpretation Code Description Data Rama rce(s) Supporting Document(s) CHOLESTEROL 109 MG/DL [facility] Adult Reference Ranges: Desirable Cho lesterol less than 200 mg/dL Borderline High Cholesterol 200 - 239 mg/dL High Cholesterol greater than 240 mg/dL TRIGLYCERIDES 48 MG/DL [facility] e Center HDL CHOLESTEROL 37 MG/DL [facility] are Center Adult Reference Ranges: Low HDL (major risk factor for CHD) < 40 mg/dL High HDL ("negative" risk factor for CHD) > 60 mg/dL LDL CHOLESTEROL (CALCULATED) 62 MG/DL [facility] Adult Reference Ranges: Optimal LDL C holesterol < 100 mg/dL Near Optimal/above LDL Cholesterol 100 - 129 mg/dL Borderline High LDL Cholesterol 130 - 150 mg/dL High LDL Cholesterol 160 - 189 mg/dL Very High LDL Cholesterol >189 mg/dL ID Date Data Source [id number] 04/15/2020 04:03:00 PM EDT [facility] ([facility]) Name Value Range Interpretation Code Description Data Rama rce(s) Supporting Document(s) Optivol In Office Laboratory test result [facility] ([facility]) Icd Single Program Laboratory test result [facility] ([facility]) ID Date Data Source [id number] 03/18/2020 10:42:00 AM EDT [facility] ([facility]) Name Value Range Interpretation Code Description Data Rama rce(s) Supporting Document(s) Echocardiogram Laboratory test result ME DENT ([facility]) ID Date Data Source [id number] 01/04/2020 01:44:00 PM EDT [facility] ([facility] [...] co mpleted Patient has never smoked MEDENT ([facility]) Vital Signs ID Date Data Source UNK Name Value Range Interpretation Code Description Data Source(s) Body mass index (BMI) [Ratio] 25.1 kg/m2 25.1 k g/m2 MED[facility] ([facility]) Body height 71 [in_i] 71 [in_i] MED[facility] ([facility]) 5'11" Body weight 180.00 [lb_av] 180.00 [lb_av] MEDEN T ([facility]) Body temperature 97.1 [degF] 97.1 [degF] MEDENT ([facility], [facility]) Oxygen saturation in Arterial blood by Pulse oximetry 98 % 98 % MED[facility] ([facility], [facility]) Respiratory rate 12 /min 12 /min [facility] ( [facility], [facility]) Heart rate 73 /min 73 /min [facility] ([facility]) Diastolic blood pressure 60 mm[Hg] 60 mm[Hg] MED[facility] ([facility], [facility]) Systolic blood pressure 104 mm[Hg] 104 mm[Hg] [facility] ([facility], [facility]) Body weight 185.12 [lb_av] 185.12 [lb_av] MEDEN T ([facility] Heart rate 54 /min 54 /min [facility] ([facility] Diastolic blood pressure 70 mm[Hg] 70 mm[Hg] [facility] ([facility] Systolic blood pressure 110 mm[Hg] 110 mm[Hg] [facility] ([facility].) Body mass index (BMI) [Ratio] 25.7 kg/m2 25.7 k g/m2 [facility], [facility]) Body height 71.5 [in_i] 71.5 [in_i] MEDENT ([facility], [facility]) 5'11.50" Body weight 187.00 [lb_av] 187.00 [lb_av] MEDEN T ([facility], [facility]) Body temperature 98.8 [degF] 98.8 [degF] [facility] ([facility], [facility]) Oxygen saturation in Arterial blood by Pulse oximetry 98 % 98 % [facility] ([facility], [facility]) Respiratory rate 17 /min 17 /min [facility] ( [facility], [facility]) Heart rate 89 /min 89 /min [facility] Diastolic blood pressure 56 mm[Hg] 56 mm[Hg] [facility] ([facility], [facility]) Systolic blood pressure 95 mm[Hg] 95 mm[Hg] [facility], [facility])
[2020-12-15] MEDS ORDERED: DEXTROSE 50% 50 ML SYRINGE IV STA ×4 (06:03→11:51)
[2020-12-15] MEDS ORDERED: CALCIUM GLUCONATE 1,000 MG in D5W MINI-BAG PLUS 100 ML IV ONE (06:15)
[2020-12-15] MEDS ORDERED: HumuLIN R (REGULAR) INSULIN (NovoLIN R) **100U/ML** PER UNIT IV ONE (06:15)
[2020-12-15 06:27] LABS: DIGOXIN LEVEL 0.9 NG/ML (0.5-2.0)
--- NOTE | 2020-12-15 06:48 | REPVR ---
PROCEDURE INFORMATION: Exam: CT Maxillofacial Without Contrast Exam date and time: 12/15/2020 6:17 AM Age: 80 years old Clinical indication: Injury or trauma; Fall; Blunt trauma (contusions or hematomas); Nose TECHNIQUE: Imaging protocol: Computed tomography images of the face without contrast. Radiation optimization: All CT scans at this facility use at least one of these dose optimization techniques: automated exposure control; mA and/or kV adjustment per patient size (includes targeted exams where dose is matched to clinical indication); or iterative reconstruction. COMPARISON: No relevant prior studies available. FINDINGS: Orbital cavity: The orbits appear unremarkable. Bones/joints: There is no evidence of acute fracture. Degenerative changes are noted at the left TMJ. Paranasal sinuses: The sinuses are clear. Mastoid air cells: The mastoid air cells are clear. Soft tissues: Unremarkable. Dental: There is an empty socket for the right maxillary central incisor. There are multiple additional missing teeth. IMPRESSION: No acute fracture identified. Electronically signed by: Lmaar Edgar On 12/15/2020 06:48:51 AM
--- NOTE | 2020-12-15 06:55 | REPVR ---
PROCEDURE INFORMATION: Exam: CT Cervical Spine Without Contrast Exam date and time: 12/15/2020 6:17 AM Age: 80 years old Clinical indication: Injury or trauma; Fall; Blunt trauma TECHNIQUE: Imaging protocol: Computed tomography images of the cervical spine without contrast. Radiation optimization: All CT scans at this facility use at least one of these dose optimization techniques: automated exposure control; mA and/or kV adjustment per patient size (includes targeted exams where dose is matched to clinical indication); or iterative reconstruction. COMPARISON: CT Spine,cervical w/o contrast 03/01/2014 8:42 PM FINDINGS: Bones/joints: There is a minimal retrolisthesis of C3 on C4. There is no evidence of acute fracture. Hypertrophic degenerative changes are seen at the articulation of the odontoid process with the anterior arch of C1 with associated narrowing of the pre dens space. There is hypertrophic facet arthropathy on the right side at C2-C3 and mild bilateral facet arthropathy at C4-C5. Degenerative endplate changes are seen at each level in the visualized spine. Discs/Spinal canal/Neural foramina: There is advanced narrowing of the C4-C5 disc space and probably partial fusion across the disc. There is moderate narrowing of the disc spaces at C3-C4, C5-C6, C6-C7, C7-T1, and T1-T2. There is little spinal canal stenosis. There is bilateral neural foraminal narrowing from C3-C4 through C6-C7. Lungs: The visualized lung apices are clear. Soft tissues: The paraspinous soft tissues appear unremarkable. IMPRESSION: 1. No acute fractures identified. 2. Advanced multilevel degenerative disc disease, with slight progression compared to 2013. Probable partial fusion across the C4-C5 disc. 3. Facet arthropathy most prominent on the right side at C2-C3. Electronically signed by: Lamar Edgar On 12/15/2020 06:56:03 AM
--- NOTE | 2020-12-15 06:58 | REPVR ---
PROCEDURE INFORMATION: Exam: CT Head Without Contrast Exam date and time: 12/15/2020 6:17 AM Age: 80 years old Clinical indication: Injury or trauma; Fall; Blunt trauma (contusions or hematomas) TECHNIQUE: Imaging protocol: Computed tomography of the head without contrast. Radiation optimization: All CT scans at this facility use at least one of these dose optimization techniques: automated exposure control; mA and/or kV adjustment per patient size (includes targeted exams where dose is matched to clinical indication); or iterative reconstruction. COMPARISON: CT Head without contrast 03/01/2014 8:42 PM FINDINGS: Brain: There is stable mild, diffuse parenchymal volume loss. There is heterogeneity of the white matter attenuation, most consistent with mild chronic white matter ischemic changes. The cortical/white matter interfaces are preserved throughout the brain. Incidental prominent ossification of the falx is again noted. There is no evidence of intracranial hemorrhage. Cerebral ventricles: The ventricular system demonstrates stable mild diffuse compensatory enlargement. Bones/joints: No acute fractures of the skull are identified. Paranasal sinuses: The sinuses are clear. Mastoid air cells: The mastoid air cells are clear. Soft tissues: The soft tissues appear unremarkable. IMPRESSION: No evidence of acute intracranial injury. Electronically signed by: Lamar Edgar On 12/15/2020 06:59:03 AM
[2020-12-15] MEDS ORDERED: PHYTONADIONE INJection 10 MG in NS 50 ML IV ONE (07:30)
--- NOTE | 2020-12-15 07:32 | ECGEPIP ---
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
[2020-12-15] MEDS ORDERED: PANTOPRAZOLE 40MG VIAL (C9113 PER 1) IV ONE (08:00)
[2020-12-15] MEDS ORDERED: ATOR1TAB19 PO (08:09)
[2020-12-15] MEDS ORDERED: MAGN64TASA PO (08:09)
[2020-12-15] MEDS ORDERED: DIGO0.253 PO (08:09)
[2020-12-15] MEDS ORDERED: BAYE81TA10 PO (08:09)
--- OUTSIDE RECORDS SUMMARY | 2020-12-15 08:26 | CCD ---
Author Author [facility] Address Unknown Phone Unavailable Care Team Providers Care Chain Repairer Name Role Phone Telly Moreland MD Unavailable [...] Telly Chavez MD Unavailable Unavailable Meester, Telly hCavez MD Unavailable Unavailable Meester, Telly Chavez MD [...] Telly Chavez MD Unavailable Unavailable Meester, Telly Chvaez MD Unavailable Unavailable Meester, Telly Chavez MD Unavailable Unavailable Meester, Telly Chavez MD Unavailable Unavailable Meester, Telly Chavez MD Unavailable Unavailable Meester, Telly Chavez MD Unavailable Unavailable Delvalle, Maritza SODA COLUMN OPERATOR Unavailable Unavailable Delvalle, Maritza SODA COLUMN OPERATOR Unavailable Unavailable Delvalle, Maritza SODA COLUMN OPERATOR Unavailable Unavailable Delvalle, Maritza SODA COLUMN OPERATOR Unavailable Unavailable Delvalle, Maritza SODA COLUMN OPERATOR Unavailable Unavailable Delvalle, Maritza SODA COLUMN OPERATOR Unavailable Unavailable Delvalle, Maritza SODA COLUMN OPERATOR Unavailable Unavailable Delvalle, Maritza SODA COLUMN OPERATOR Unavailable Unavailable Delvalle, Maritza SODA COLUMN OPERATOR Unavailable Unavailable Delvalle, Maritza SODA COLUMN OPERATOR Unavailable Unavailable Delvalle, Maritza SODA COLUMN OPERATOR Unavailable Unavailable Re-disclosure Warning The records that [...] is protected by Article 27-F of the [facility] Public Health law. If you continue you may have access to information: Regarding HIV / AIDS; Provided by facilities licensed or operated by the [facility] Office of Mental Health; or Provided by the [facility] Office for People With Developmental Disabilities. If such information is present, then the following [facility] mandated warning applies: This information has [...] law may result in a fine or longterm sentence or both. A general authorization for the release of medical or other information is NOT sufficient authorization for further disc losure. Family History Family Member Name Family Member Gender Family Member Status Date o f Status Description Data Source(s) Unknown Male Problem [facility] ([facility]) Unknown Male Problem [facility] ([facility] Unknown Unknown Problem [facility] Unknown Unknown Problem [facility]) father Unknown Female Encounters Encounter Providers Location Date Indications Data Source(s ) Outpatient Attender: Maritza Delvalle NP Jennifertoma acuña 08/01/2020 12:30:00 PM EDT MED[facility] ([facility], [facility]) Outpatient Attender: Kathy Moerland MD 05/2020 02:10:00 PM EDT - 07/01/2020 02:11:00 PM EDT E78.00, I42.9 [facility] E78.00, I42.9 Patient discharged. Outpatient Attender: Kathy Baires Office 05/2020 10:00:00 AM EDT [facility] Attender: Kathy Baires Office 09:15:00 AM EDT [facility] Medications Medication Brand Name Start Date Product Form Dose Route Admi nistrative Instructions Pharmacy Instructions Status Indications Reaction Description Data Source(s) Warfarin Sodium 2.5 MG Oral Tablet [Jantoven] Jantoven 10/20/2020 12:00:00 AM EST active [facility]) terbinafine 250 MG Oral Tablet Terbinafine HCL 07/01/2020 12:00:00 AM EDT ORAL active MEDENT ([facility] Doxycycline Monohydrate 100 MG Oral Capsule Doxycycline Trego hydrate 11/16/2019 12:00:00 AM EST ORAL active M EDENT ([facility], [facility]) Insurance Providers Payer name Policy type / Coverage type Policy ID Covered republican ID Covered republican's relationship to coy Policy Coy Plan Information MEDICARE [id number] SP [id number] AARP HEALTH CARE OPTIONS [id number] SP [id number] MEDICARE [id number] SP [id number] A MEDICARE B [id number] P [id number] MEDICARE A [id number] P [id number] [facility] AARP [id number] P [id number] Aarp Commercial [id number] Self [id number] [place] Primary [id number] Self [id number] Aarp Commercial [id number] Self [id number] [place] Primary [id number] Self [id number] DME Jurisdiction A FLIC C [id number] SELF [id number] [facility] AARP Supplemental F [id number] SELF [id number] Medicare C [id number] SELF [id number] Medicare C [id number] SELF [id number] A MEDICARE A [id number] P [id number] First United [place]ym[place] Commercial [id number] Self [id number] BS Of [place] Commercial [id number] Self [id number] BS Of [place] Medigap Part B [id number] Self [id number] Aarp Health Care Options Medigap Part B [id number] Self [id number] [place] Primary [id number] Self [id number] Aarp Health Care Options Medigap Part B [id number] Self [id number] Medicare Natl Gov't Servi Medicare Primary [id number] Self [id number] AARP O [id number] S [id number] MEDICARE C [id number] S [id number] A Aarp Commercial [id number] Self [id number] [place] Primary [id number] Self [id number] Aarp Health Care Options Medigap Part B [id number] Self [id number] Medicare Natl Gov't Servi Medicare Primary [id number] Self [id number] Aarp Health Care Options Medigap Part B [id number] Self [id number] Medicare Natl Gov't Servi Medicare Primary [id number] Self [id number] Aarp Medigap Part B [id number] Self [id number] Medicare [email or web address] Medicare Primary [id number] Self [id number] Aarp Medigap Part B [id number] Self [id number] [place] Medicare Primary [id number] Self [id number] AARP HEALTH CARE OPTIONS [id number] Patient [id number] MEDICARE [id number] Patient [id number] A Aarp Medigap Part B [id number] Self [id number] [place] Medicare Primary [id number] Self [id number] FIRST UNITED TAJIK [id number] SP [id number] Aarp Commercial [id number] Self [id number] [place] Medicare Primary [id number] Self [id number] BLUE CROSS OUT OF STATE [id number] Patient [id number] Aarp Medigap Part B [id number] Self [id number] [place]/[facility] Medicare Primary [id number] Self [id number] Aarp Health Care Options Medigap Part B [id number] Self [id number] Medicare Natl Gov't Serv Medicare Primary [id number] Self [id number] Aarp Commercial [id number] Self [id number] [place] Primary [id number] Self [id number] Aarp Commercial Self [place] Medicare Primary Self First United Cymraes(pr) Medigap Part B Self [place] Medicare Primary Self FIRST UNITED TAJIK [id number] P [id number] BC BS OF [place] [id number] P [id number] AARP HEALTH CARE OPTIONS -O/P [id number] 18 [id number] AARP HEALTH CARE OPTIONS -O/P UNAVAILABLE UNAVAILABLE BLUE CROSS BLUE [facility]-O/P [id number] 18 [id number] MEDICARE -O/P [id number] 18 [id number] FIRST UNITED TAJIK S [id number] S [id number] BCBS [place] PPO [id number] SP [id number] A Problems, Conditions, and Diagnoses Code Display Name Description Problem Type Effective Dates Data Source(s) I42.9 Cardiomyopathy, unspecified CARDIOMYOPATHY, UNSPECIFIE D Diagnosis 07/01/2020 02:10:00 PM EDT [facility] E78.00 PURE HYPERCHOLESTEROLEMIA, UNSPECIFIED P URE HYPERCHOLESTEROLEMIA, UNSPECIFIED Diagnosis 07/01/2020 02:10:00 PM EDT [facility] Surgeries/Procedures Procedure Description Date Indications Data Source(s) Interrogation Device Implantable Cardiovascular Monitoring S ystem 08/01/2020 12:00:00 AM EDT MEDENT ([facility]) Single Lead Implant Cardioverter-Defibrillator 020 12:00:00 AM EDT MEDENT ([facility]) Implant Cardiovascular Monitoring System 04/15/2020 12 :00:00 AM EDT MED[facility] ([facility]) Echocardiography, Tranthoracic Complete Image Documentation 03/18/2020 12:00:00 AM EDT MED[facility] ([facility]) Interrogation Device Implantable Cardiovascular Monitoring S ystem 01/04/2020 12:00:00 AM EDT MEDENT ([facility] Cardiology) Results ID Date Data Source [id number] 08/01/2020 09:15:00 AM EDT MEDENT ([facility] C ardiology) Name Value Range Interpretation Code Description Data Rama rce(s) Supporting Document(s) Icd Remote Check Prof & Tech Laboratory test result MEDENT ([facility]) Optivol Remote Check Prof & Tech Laboratory test result MEDENT ([facility]) ID Date Data Source [id number] 07/01/2020 10:34:00 AM EDT [facility] ([facility] Name Value Range Interpretation Code Description Data Rama rce(s) Supporting Document(s) Sodium [Moles/volume] in Serum or Plasma 140 mmol/L 136-145 [facility] ([facility] Potassium [Moles/volume] in Serum or Plasma 4.3 mmol/L 3.4-5.0 MED[facility] ([facility] Chloride [Moles/volume] in Serum or Plasma 100 mmol/L 98-107 [facility] ([facility] Carbon dioxide, total [Moles/volume] in Serum or Plasma 28 mmol/L 22 -29 [facility] ([facility] Glucose [Mass/volume] in Serum or Plasma 94 mg/dL 70-99 [facility] ([facility] Anion Gap 16 mmol/L 10-20 [facility] ([facility] Creatinine 0.7 mg/dL 0.7-1.2 MED[facility] ([facility] Protein [Mass/volume] in Serum or Plasma 7.2 g/dL 6.4-8.3 MED[facility] ([facility] Urea nitrogen [Mass/volume] in Serum or Plasma 15 mg/dL 6-20 MED[facility] ([facility] Calcium [Mass/volume] in Serum or Plasma 9.6 mg/dL 8.8-10.2 MED[facility] ([facility] Bilirubin.total [Mass/volume] in Serum or Plasma 1.1 mg/dL 0.0-1.2 MED[facility] ([facility] Albumin [Mass/volume] in Serum or Plasma 4.3 g/dL 3.5-5.2 MED[facility] ([facility] Alkaline phosphatase [Enzymatic activity/volume] in Serum or Plasma 85 U/L 40-129 [facility] ([facility] Alanine aminotransferase [Enzymatic activity/volume] in Seru m or Plasma 18 U/L 0-41 [facility] Aspartate aminotransferase [Enzymatic activity/volume] in Serum or Plasma 29 U/L 0-40 [facility] ([facility] ID Date Data Source [id number] 07/01/2020 10:34:00 AM EDT MED[facility] ([facility] Name Value Range Interpretation Code Description Data Rama rce(s) Supporting Document(s) HDL Cholesterol 37 mg/dL MED[facility] ([facility] <content>Adult Reference Ranges:</conten t>
<content>Low HDL (major risk factor for CHD) < 40 mg/dL</content>
<content>High HDL ("negative" risk factor for CHD) > 60 mg/dL</content>
<content></content> Triglyceride [Mass/volume] in Serum or Plasma 48 mg/dL MED[facility] ([facility] Cholesterol [Mass/volume] in Serum or Plasma 109 mg/dL MED[facility] ([facility] Adult Reference Ranges: Desirable Cholesterol less than 200 mg/dL Borderline High Cholesterol 200 - 239 mg/dL High Cholesterol greater than 240 mg/dL Cholesterol in LDL [Mass/volume] in Serum or Plasma by calculation 62 mg/dL [facility] <content>Adult Reference Ranges:</conten t>
<content>Optimal LDL Cholesterol < 100 mg/dL</content>
<content>Near Optimal/above LDL Cholesterol 100 - 129 mg/dL</content>
<content>Borderline High LDL Cholesterol 130 - 150 mg/dL</content>
<content>High LDL Cholesterol 160 - 189 mg/dL</content>
<content>Very High LDL Cholesterol >189 mg/dL</content>
<content></content> ID Date Data Source [id number] 07/01/2020 02:59:00 PM EDT [facility] Name Value Range Interpretation Code Description Data Rama rce(s) Supporting Document(s) SODIUM 140 MMOL/L 136-145 [facility] C enter POTASSIUM 4.3 MMOL/L 3.4-5.0 [facility] C enter CHLORIDE 100 MMOL/L 98-107 [facility] C enter CO2 28 MMOL/L 22-29 [facility] Ce nter ANION GAP 16 MMOL/L 10-20 [facility] Ce nter GLUCOSE 94 MG/DL 70-99 [facility] Ce nter CREATININE 0.7 MG/DL 0.7-1.2 [facility] C enter BUN 15 MG/DL 6-20 [facility] Ce nter CALCIUM 9.6 MG/DL 8.8-10.[address] [facility] nter TOTAL PROTEIN 7.2 G/DL 6.4-8.3 [facility] e Center ALBUMIN 4.3 G/DL 3.5-5.[address] [facility] nter BILIRUBIN,TOTAL 1.1 MG/DL 0.0-1.2 [facility] are Center ALKALINE PHOSPHATASE 85 U/L 40-129 [facility] AST 29 U/L 0-40 [facility] Ce nter ALT 18 U/L 0-[address] [facility] nter ID Date Data Source [id number] 07/01/2020 02:59:00 PM EDT [facility] Name Value Range Interpretation Code Description Data Rama rce(s) Supporting Document(s) CHOLESTEROL 109 MG/DL [facility] Adult Reference Ranges: Desirable Cho lesterol less than 200 mg/dL Borderline High Cholesterol 200 - 239 mg/dL High Cholesterol greater than 240 mg/dL TRIGLYCERIDES 48 MG/DL [facility] Center HDL CHOLESTEROL 37 MG/DL [facility] are Center Adult Reference Ranges: Low HDL (major risk factor for CHD) < 40 mg/dL High HDL ("negative" risk factor for CHD) > 60 mg/dL LDL CHOLESTEROL (CALCULATED) 62 MG/DL [facility] Adult Reference Ranges: Optimal LDL C holesterol < 100 mg/dL Near Optimal/above LDL Cholesterol 100 - 129 mg/dL Borderline High LDL Cholesterol 130 - 150 mg/dL High LDL Cholesterol 160 - 189 mg/dL Very High LDL Cholesterol >189 mg/dL ID Date Data Source [id number] 04/15/2020 04:03:00 PM EDT [facility] ([facility]) Name Value Range Interpretation Code Description Data Rama rce(s) Supporting Document(s) Optivol In Office Laboratory test result [facility] ([facility]) Icd Single Program Laboratory test result [facility] ([facility]) ID Date Data Source [id number] 03/18/2020 10:42:00 AM EDT [facility] ([facility]) Name Value Range Interpretation Code Description Data Rama rce(s) Supporting Document(s) Echocardiogram Laboratory test result ME DENT ([facility]) ID Date Data Source [id number] 01/04/2020 01:44:00 PM EDT [facility] ([facility] [...] co mpleted Patient has never smoked MEDENT ([facility]) Vital Signs ID Date Data Source UNK Name Value Range Interpretation Code Description Data Source(s) Body mass index (BMI) [Ratio] 25.1 kg/m2 25.1 k g/m2 MEDENT ([facility]) Body height 71 [in_i] 71 [in_i] MEDENT ([facility]) 5'11" Body weight 180.00 [lb_av] 180.00 [lb_av] MEDEN T ([facility], [facility]) Body temperature 97.1 [degF] 97.1 [degF] MEDENT ([facility], [facility]) Oxygen saturation in Arterial blood by Pulse oximetry 98 % 98 % [facility], [facility]) Respiratory rate 12 /min 12 /min MEDENT ( [facility], [facility]) Heart rate 73 /min 73 /min [facility] ([facility], [facility]) Diastolic blood pressure 60 mm[Hg] 60 mm[Hg] [facility] ([facility], [facility]) Systolic blood pressure 104 mm[Hg] 104 mm[Hg] M [facility] ([facility], [facility]) Body weight 185.12 [lb_av] 185.12 [lb_av] MEDEN T ([facility] Heart rate 54 /min 54 /min [facility] ([facility] Diastolic blood pressure 70 mm[Hg] 70 mm[Hg] [facility] ([facility] Systolic blood pressure 110 mm[Hg] 110 mm[Hg] [facility] ([facility] Body mass index (BMI) [Ratio] 25.7 kg/m2 25.7 k g/m2 [facility] ([facility], [facility]) Body height 71.5 [in_i] 71.5 [in_i] [facility] ([facility], [facility]) 5'11.50" Body weight 187.00 [lb_av] 187.00 [lb_av] MEDEN T ([facility], [facility]) Body temperature 98.8 [degF] 98.8 [degF] [facility] ([facility], [facility]) Oxygen saturation in Arterial blood by Pulse oximetry 98 % 98 % MED[facility] ([facility], [facility]) Respiratory rate 17 /min 17 /min MEDENT ( [facility], [facility]) Heart rate 89 /min 89 /min [facility]) Diastolic blood pressure 56 mm[Hg] 56 mm[Hg] MEDENT ([facility], [facility]) Systolic blood pressure 95 mm[Hg] 95 mm[Hg] M RICKI ([facility], [facility])
--- NOTE | 2020-12-15 08:29 | HPEPDOC ---
[facility] Medical History & Physical Date of Admission Dec 15, 2020 Date of Service: Dec 15, 2020 Attending Physician: ROMY ROJAS MD History and Physical CHIEF COMPLAINT: , Dizziness and GI bleed HISTORY OF PRESENT ILLNESS: 80-year-old male with past medical history of congestive heart failure status post AICD placement, atrial fibrillation (on Coumadin) presents from home with dizziness and rectal bleeding. Patient reports first episode of rectal bleeding yesterday morning at 8 AM, had 3 further episodes throughout the day, got up to ambulate to the bathroom around midnight when he got dizzy and fell, lacerating his nose in the process. Patient denies loss of consciousness and presented to the hospital. Patient has had intermittent episodes of dizziness in the emergency department and blood pressure has been labile. Patient has had one maroon colored bowel movement in the emergency department, small volume. Patient has received 1 unit of packed red blood cells in the emergency department so far, second unit being having now. Patient takes Coumadin for atrial fibrillation, INR is 4. Patient currently receiving 1 dose of vitamin K 10 mg IV. Patient is scheduled to receive 2 units of FFP. Patient has no other symptoms, denies any shortness of breath, chest pain, nausea, vomiting or abdominal pain at this time. Patient last saw his certified medical dosimetrist about one year ago. 10 point review of system is negative except for above PAST MEDICAL HISTORY: 1. Congestive heart failure. 2. , Atrial fibrillation. 3. , Coronary artery disease. PAST SURGICAL HISTORY: 1. AICD placement. 2. , Cholecystectomy. SOCIAL HISTORY: , Never smoker. Social alcohol use. Denies drug use FAMILY HISTORY: Father had colon cancer ALLERGIES: Please see below. HOME MEDICATIONS: Please see below. PHYSICAL EXAMINATION: VITAL SIGNS: Please see below. GENERAL: No distress HEENT: Normocephalic, atraumatic, moist mucous membranes NECK: Supple CARDIOVASCULAR EXAMINATION: , Irregularly irregular, tachycardic RESPIRATORY EXAMINATION: Diminished in the bases, no wheezing ABDOMINAL EXAMINATION: Soft, nontender, nondistended, positive bowel sounds EXTREMITIES: Range of motion intact SKIN: No rash NEUROLOGICAL EXAMINATION: Alert and oriented 3, no focal deficits PSYCHIATRIC EXAMINATION: Calm and cooperative LABORATORY DATA: See below. IMAGING: CT imaging of the head and neck negative for acute pathology MICROBIOLOGY: Please see below. ASSESSMENT: 80-year-old male with past medical history of congestive heart failure and atrial fibrillation is admitted for GI bleed secondary to Coumadin. PLAN: 1. GI bleed. Probably upper GI bleed, caused by Coumadin and supratherapeutic INR 4.0. Coumadin being reversed with vitamin K and 2 units of FFP. Nothing by mouth, Protonix 80 mg IV 1 followed by 40 mg IV twice a day. 2 units of packed red blood cells, scheduled to receive 2 units of FFP as well. CBC every 6 hours, general surgery consulted for EGD/colonoscopy. 2. Congestive heart failure. With reduced ejection fraction, previous echo in our system from 2013. Has AICD, hold home beta babita and lisinopril due to hypotension at this time. Hold aspirin for GI bleed. We'll restart statin when cleared to start by mouth meds. 3. Atrial fibrillation. Currently tachycardic, which is likely compensatory for hypotension. Hold digoxin for now, level within normal limits. We'll restart digoxin once patient is stabilized. Hold metoprolol due to hypotension 4. Hyperkalemia. Possibly related to amaris inhibitors, received acute treatment in the emergency department, hold ramipril. We'll not administer any Kayexalate at this time as patient is having GI bleed. Repeat BMP at noon. DVT prophylaxis: Contraindicated GI prophylaxis: PPI Vital Signs Vital Signs Date Time Temp Pulse Resp B/P (MAP) Pulse Ox O2 Delivery O2 Flow Rate FiO2 12/15/20 07:59 96.7 105 18 95/54 100 Room Air Laboratory Data Labs 24H Laboratory Tests 2 12/15/20 03:41: Immature Granulocyte % (Auto) 0.8, Neutrophils (%) (Auto) 77.0H, Lymphocytes (%) (Auto) 13.5L, Monocytes (%) (Auto) 7.9, Eosinophils (%) (Auto) 0.5, Basophils (%) (Auto) 0.3, Neutrophils # (Auto) 6.1, Lymphocytes # (Auto) 1.1L, Monocytes # (Auto) 0.6, Eosinophils # (Auto) 0.0, Basophils # (Auto) 0.0, Nucleated Red Blo od Cells % (auto) 0.0, Prothrombin Time 40.3H, Prothromb Time International Ratio 4.05, Activated Partial Thromboplast Time 39.9H, Anion Gap 5L, Glomerular Filtration Rate > 60.0, Calcium Level 7.2L, Total Bilirubin 0.4, Direct Bilirubin 0.1, Aspartate Amino Transf (AST/SGOT) 13, Alanine Aminotransferase (ALT/SGPT) 15, Alkaline Phosphatase 56, Total Creatine Kinase 60, Creatine Kinase MB 2.6, Creatine Kinase MB Relative Index 4.33H, Troponin I 0.02, Total Protein 4.4L, Albumin 2.3L, Albumin/Globulin Ratio 1.1, Lipase 85, Digoxin Level 0.9 12/15/20 04:06: POC Glucose (Misc Panel) 138H, POC Sodium (Misc Panel) 134L, POC Potassium (Misc Panel) 4.9, POC Chloride (Misc Panel) 98, POC Total CO2 (Misc Panel) 27.0, POC Blood Urea Nitrogen (Misc Panel 29H, POC Ionized Calcium (Misc Panel) 4.5, POC Creatinine (Misc Panel) 0.9, POC Hematocrit (Misc Panel) 20.0L 12/15/20 06:32: Bedside Glucose (Misc Panel) 103 CBC/BMP Laboratory Tests 12/15/20 03:41 Microbiology Microbiology 12/15/20 Respiratory Virus Panel (PCR) ([facility]) - Final, Complete Home Medications Scheduled Aspirin (Low Dose Aspirin EC) 81 Mg Tablet.dr, 81 MG PO DAILY Atorvastatin Calcium (Atorvastatin Calcium) 10 Mg Tablet, 10 MG PO DAILY Carvedilol (Carvedilol) 25 Mg Tablet, 25 MG PO BID Digoxin (Digoxin) 250 Mcg Tablet, 250 MCG PO QHS Magnesium Chloride (Mag64) 64 Mg Tablet.dr, 64 MG PO BID Ramipril (Ramipril) 5 Mg Capsule, 5 MG PO DAILY Warfarin Sodium (Jantoven) 2.5 Mg Tablet, 2.5 MG PO DAILY Allergies Coded Allergies: No Known Allergies (Unverified , 12/15/20) A-FIB/CHADSVASC A-FIB History Current/History of A-Fib/PAF?: Yes Current PO Anticoag Therapy: No Treatment Reason Anticoagulant not given: Current bleeding ROMY ROJAS MD Dec 15, 2020 08:29
[2020-12-15 12:35] LABS: INR 1.86; PROTHROMBIN TIME 21.8 SECONDS (12.5-14.3)
[2020-12-15 12:55] LABS: HEMATOCRIT 25.5 % (42.0-52.0); HEMOGLOBIN 8.6 g/dl (13.5-17.5); MEAN CORPUSCULAR HEMOGLOBIN 31.5 pg (27.0-33.0); MEAN CORPUSCULAR HGB CONC 33.7 g/dl (32.0-36.5); MEAN CORPUSCULAR VOLUME 93.4 fl (80.0-96.0); PLATELET COUNT, AUTOMATED 124 10^3/uL (150-450); RED BLOOD COUNT 2.73 10^6/uL (4.30-6.10); WHITE BLOOD COUNT 9.3 10^3/uL (4.0-10.0)
[2020-12-15 13:02] LABS: BLOOD UREA NITROGEN 31 MG/DL (7-18); CALCIUM LEVEL 7.5 MG/DL (8.8-10.2); CARBON DIOXIDE LEVEL 26 MEQ/L (21-32); CHLORIDE LEVEL 106 MEQ/L (98-107); CREATININE FOR GFR 0.81 MG/DL (0.70-1.30); GLOMERULAR FILTRATION RATE > 60.0 (>35); GLUCOSE, FASTING 227 MG/DL (70-100); POTASSIUM SERUM 4.2 MEQ/L (3.5-5.1); SODIUM LEVEL 139 MEQ/L (136-145)
[2020-12-15] MEDS: OCTREOTIDE ACETATE 100MCG/ML VIAL (J2354 PER 25MCG) IV SCH ×2 (13:33→20:48)
[2020-12-15] MEDS: SUCRALFATE SUSP 1GM/10ML UD PO SCH ×2 (13:33→20:42)
[2020-12-15 19:15] LABS: HEMATOCRIT 24.9 % (42.0-52.0); HEMOGLOBIN 8.4 g/dl (13.5-17.5); MEAN CORPUSCULAR HEMOGLOBIN 31.6 pg (27.0-33.0); MEAN CORPUSCULAR HGB CONC 33.7 g/dl (32.0-36.5); MEAN CORPUSCULAR VOLUME 93.6 fl (80.0-96.0); PLATELET COUNT, AUTOMATED 157 10^3/uL (150-450); RED BLOOD COUNT 2.66 10^6/uL (4.30-6.10); WHITE BLOOD COUNT 12.1 10^3/uL (4.0-10.0)
[2020-12-15] MEDS: PANTOPRAZOLE 40MG VIAL (C9113 PER 1) IV SCH (20:42)
[2020-12-16] VITALS (14 sets, daily range): BP systolic 86–118; BP diastolic 42–74
[2020-12-16 00:26] LABS: MEAN CORPUSCULAR HEMOGLOBIN 31.7 pg (27.0-33.0); MEAN CORPUSCULAR HGB CONC 33.8 g/dl (32.0-36.5); MEAN CORPUSCULAR VOLUME 93.7 fl (80.0-96.0); PLATELET COUNT, AUTOMATED 115 10^3/uL (150-450); RED BLOOD COUNT 2.21 10^6/uL (4.30-6.10); WHITE BLOOD COUNT 7.6 10^3/uL (4.0-10.0)
[2020-12-16 00:30] LABS: HEMATOCRIT 20.7 % (42.0-52.0)
[2020-12-16] MEDS: SUCRALFATE SUSP 1GM/10ML UD PO SCH ×4 (02:10→20:05)
[2020-12-16] MEDS ORDERED: NS 500 ML IV ONE ×2 (03:45→06:45)
[2020-12-16] MEDS: OCTREOTIDE ACETATE 100MCG/ML VIAL (J2354 PER 25MCG) IV SCH ×3 (06:11→20:06)
[2020-12-16] MEDS ORDERED: SODIUM CHLORIDE 0.9% 1000ML IV ONE ×2 (06:30→07:00)
[2020-12-16 08:11] LABS: HEMOGLOBIN 8.6 g/dl (13.5-17.5); MEAN CORPUSCULAR HEMOGLOBIN 30.9 pg (27.0-33.0); MEAN CORPUSCULAR HGB CONC 33.1 g/dl (32.0-36.5); MEAN CORPUSCULAR VOLUME 93.5 fl (80.0-96.0); PLATELET COUNT, AUTOMATED 118 10^3/uL (150-450); RED BLOOD COUNT 2.78 10^6/uL (4.30-6.10); WHITE BLOOD COUNT 6.6 10^3/uL (4.0-10.0)
[2020-12-16 08:45] LABS: ALBUMIN 2.9 GM/DL (3.2-5.2); ALT/SGPT 19 U/L (12-78); BILIRUBIN,TOTAL 1.8 MG/DL (0.2-1.0); BLOOD UREA NITROGEN 25 MG/DL (7-18); CALCIUM LEVEL 7.8 MG/DL (8.8-10.2); CARBON DIOXIDE LEVEL 28 MEQ/L (21-32); CHLORIDE LEVEL 107 MEQ/L (98-107); GLOMERULAR FILTRATION RATE > 60.0 (>35); GLUCOSE, FASTING 126 MG/DL (70-100); MAGNESIUM LEVEL 1.8 MG/DL (1.8-2.4); POTASSIUM SERUM 4.3 MEQ/L (3.5-5.1); SODIUM LEVEL 143 MEQ/L (136-145)
--- NOTE | 2020-12-16 09:23 | CR ---
CONSULTATION DATE: 12/15/2020 BRIEF HISTORY OF PRESENT ILLNESS: The patient is status post AICD placement, in atrial fibrillation, who presents with rectal bleeding that started yesterday morning and had several bowel movements throughout the day. He ended up standing up and got orthostatic, fell over and had a laceration on his nose and came into the Emergency Room for evaluation. He was unit a unit of blood and was better from a blood pressure standpoint and overall symptomatic nature, but he still has had a few small bright red blood per rectum blood pressures and essentially it sounds as though it may be 100 or 200 mL of blood. He has had a colonoscopy in the past with a history of colonic polyps. He does not recall any history of diverticulosis. He does not complain of any abdominal pain. He has not complained of any pain out of proportion to physical findings. He does not take any non-steroidals. But he is on anticoagulation and has an INR of 4. PAST MEDICAL HISTORY: The patient's past medical history is significant for: 1. History of congestive heart failure. 2. Atrial fibrillation. 3. Coronary artery disease. PAST SURGICAL HISTORY: The patient's past surgical history is significant for: 1. AICD placement. 2. Cholecystectomy. PHYSICAL EXAMINATION: GENERAL APPEARANCE: An 80-year-old who looks his stated age. HEENT: Unremarkable. NECK: Supple without any. LUNGS: Clear. HEART: Regular and with multiple irregular beats. ABDOMEN: Soft, nondistended, nontender. IMPRESSION AND PLAN: The patient has a GI bleed. From his significant bleed that he had in the morning and during, it sounds as though it may be an upper GI bleed, however it still could be a lower GI bleed. At this point I would recommend continuing with reversal of anticoagulation and be aggressive about this. We will add Carafate to the Protonix that was started and given that he has had a couple more bowel movements, I will start him on some Octreotide. From a standpoint of endoscopy, if he does not stop bleeding or if he has significant progressive bleeding and is unstable, interventional radiology would be more appropriate for somebody who is unstable, however if he has ongoing low grade bleeding, then proceeding with more urgent endoscopy is warranted. If he slows/stops overnight, then we can start him on a clear liquid diet tomorrow morning and either plan on an endoscopy later on this week or as an outpatient. The patient understands our current plans and agrees with the above.
[2020-12-16] MEDS: PANTOPRAZOLE 40MG VIAL (C9113 PER 1) IV SCH ×2 (09:57→20:06)
--- NOTE | 2020-12-16 13:27 | IPNPDOC ---
Subjective Date Seen The patient was seen on 12/16/20. Subjective Chief Complaint/HPI Patient did have 2 small melenas this morning. He received 2 units of blood overnight and this am hb is 8.6 will transfuse 1 more unit of blood. Does not have any abdominal pain or nausea or vomiting. Denied any dizziness. Objective Physical Examination General Exam: Positive: Alert, Cooperative, No Acute Distress Eye Exam: Positive: PERRLA, Conjunctiva & lids normal, EOMI; Negative: Sclera icteric ENT Exam: Positive: Atraumatic, Mucous membr. moist/pink, Pharynx Normal Neck Exam: Positive: Supple; Negative: JVD, thyromegaly Chest Exam: Positive: Clear to auscultation, Normal air movement Heart Exam: Positive: Rate Normal, Regular Rhythm, Normal S1, Normal S2; Negative: Murmurs, Rubs Abdomen Exam: Positive: BS Hyperactive, Soft; Negative: Tenderness Extremity Exam: Negative: Clubbing, Cyanosis, Edema Skin Exam: Positive: Nl turgor and temperature; Negative: Rash, Breakdown Assessment /Plan Assessment 80-year-old male with past medical history of Systolic Congestive heart failure, Mitral valve prolapse, AICD, atrial fibrillation on Coumadin, HTN, HLD is admitted for GIB and acute blood loss anemia. GI bleed with acute blood loss anemia Patient presented with sudden onset melena several times on 12/14/20 On the back ground of Coumadin therapy. INR was 4.0 which was reversed to 1.8 with 4 units of FFP received 4 units of PRBC. Seen By Surgery Continue CBC q 6 hours will continue NPO. On Pantoprazole, sucralfate and octreotide Last colonoscopy in 2013. Never had an EGD. Fall and trauma to nose vasovagal from acute GIB. Congestive heart failure. With reduced ejection fraction, previous echo in our system from 2013. Last EF was 45% to 50% Has AICD since 2006, hold home beta babita and lisinopril due to hypotension at this time. Hold aspirin for GI bleed. We'll restart statin when cleared to start by mouth meds. Will get new echo Atrial fibrillation. will continue digoxin but hold coreg HTN will hold coreg and ACEI. Hyperkalemia. resolved. Plan/VTE VTE Prophylaxis Ordered?: Yes VS, I&O, 24H, Fishbone Vital Signs/I&O Vital Signs Date Time Temp Pulse Resp B/P (MAP) Pulse Ox O2 Delivery O2 Flow Rate FiO2 12/16/20 12:31 98.0 71 16 112/62 99 Room Air I&O- Last 24 Hours up to 6 AM 12/16/20 06:00 Intake Total 5041 ml Output Total 2275 ml Balance 2766 ml Laboratory Data 24H LABS Laboratory Tests 2 12/15/20 14:22: Bedside Glucose (Misc Panel) 108 12/15/20 16:02: Bedside Glucose (Misc Panel) 104 12/15/20 17:26: Bedside Glucose (Misc Panel) 109 12/15/20 19:05: Nucleated Red Blood Cells % (auto) 0.0 12/15/20 23:50: Nucleated Red Blood Cells % (auto) 0.0 12/16/20 03:05: Bedside Glucose (Misc Panel) 121H 12/16/20 07:06: Bedside Glucose (Misc Panel) 122H 12/16/20 07:39: Nucleated Red Blood Cells % (auto) 0.0, Anion Gap 8, Glomerular Filtration Rate > 60.0, Calcium Level 7.8L, Magnesium Level 1.8, Total Bilirubin 1.8#H, Aspartate Amino Transf (AST/SGOT) 21, Alanine Aminotransferase (ALT/SGPT) 19, Al kaline Phosphatase 65, Total Protein 5.0L, Albumin 2.9#L, Albumin/Globulin Ratio 1.4 12/16/20 11:29: Bedside Glucose (Misc Panel) 112H CBC/BMP Laboratory Tests 12/15/20 19:05 12/15/20 23:50 12/16/20 07:39 Microbiology Microbiology 12/15/20 Respiratory Virus Panel (PCR) ([facility]) - Final, Complete SHAKIR RAMOS MD Dec 16, 2020 13:27
[2020-12-16] MEDS: FUROSEMIDE 20MG/2ML VIAL (J1940) IV ONE ×2 (14:11→15:00)
[2020-12-16 14:13] LABS: HEMATOCRIT 28.9 % (42.0-52.0); HEMOGLOBIN 9.9 g/dl (13.5-17.5); MEAN CORPUSCULAR HEMOGLOBIN 31.8 pg (27.0-33.0); MEAN CORPUSCULAR HGB CONC 34.3 g/dl (32.0-36.5); MEAN CORPUSCULAR VOLUME 92.9 fl (80.0-96.0); PLATELET COUNT, AUTOMATED 112 10^3/uL (150-450); RED BLOOD COUNT 3.11 10^6/uL (4.30-6.10); WHITE BLOOD COUNT 6.7 10^3/uL (4.0-10.0)
[2020-12-16 14:22] LABS: INR 1.17; PROTHROMBIN TIME 15.2 SECONDS (12.5-14.3)
[2020-12-16 14:23] LABS: PARTIAL THROMBOPLASTIN TIME 28.3 SECONDS (24.2-38.5)
[2020-12-16 18:11] LABS: HEMOGLOBIN 10.6 g/dl (13.5-17.5); MEAN CORPUSCULAR HEMOGLOBIN 30.8 pg (27.0-33.0); MEAN CORPUSCULAR HGB CONC 32.1 g/dl (32.0-36.5); MEAN CORPUSCULAR VOLUME 95.9 fl (80.0-96.0); PLATELET COUNT, AUTOMATED 113 10^3/uL (150-450); RED BLOOD COUNT 3.44 10^6/uL (4.30-6.10); WHITE BLOOD COUNT 7.8 10^3/uL (4.0-10.0)
[2020-12-16] MEDS: DIGOXIN 0.25 MG TAB PO SCH (20:07)
[2020-12-16 23:55] LABS: HEMATOCRIT 29.4 % (42.0-52.0); HEMOGLOBIN 9.7 g/dl (13.5-17.5); MEAN CORPUSCULAR HEMOGLOBIN 30.5 pg (27.0-33.0); MEAN CORPUSCULAR VOLUME 92.5 fl (80.0-96.0); PLATELET COUNT, AUTOMATED 118 10^3/uL (150-450); RED BLOOD COUNT 3.18 10^6/uL (4.30-6.10); WHITE BLOOD COUNT 5.7 10^3/uL (4.0-10.0)
[2020-12-17] VITALS: BP 90/40
[2020-12-17] MEDS: SUCRALFATE SUSP 1GM/10ML UD PO SCH ×4 (02:38→20:06)
[2020-12-17 04:00] VITALS: BP 104/51
[2020-12-17] MEDS: OCTREOTIDE ACETATE 100MCG/ML VIAL (J2354 PER 25MCG) IV SCH (05:27)
[2020-12-17 07:22] LABS: INR 1.14; PROTHROMBIN TIME 14.9 SECONDS (12.5-14.3)
[2020-12-17 07:29] VITALS: BP 102/57
[2020-12-17] MEDS: PANTOPRAZOLE 40MG VIAL (C9113 PER 1) IV SCH ×2 (08:13→20:06)
--- NOTE | 2020-12-17 08:50 | IPNPDOC ---
Text Note Date of Service The patient was seen on 12/17/20. NOTE General Surgery. Dr Jo. The pt is a 80 yo male on AC for H/O Afib who presented with rectal bleeding and had several bloody bowel movements. He ended up standing up and got orthostatic, fell over and had a laceration on his nose. Admitted with acute GIB, S/P 5 u PRBC and 4 units FFP. AC on hold, INR 4.05 on admission. The pt reports last BM was last evening, still bloody per pt. This am he states he is feeling much better. Reports no BM since last evening. Sat on side of bed with no lightheadedness or dizziness this AM. Awake and alert sitting up in bed, tolerating clear liquids this AM Blood pressure 102/52 heart rate 69, respiratory rate 18, 98% 2 L nasal cannula. MMM Lungs CTA S1S2 irreg irreg Abdomen Soft and ND, NT BS present. Extremities, no edema. INR this AM 1.14. H/H 9.7/29.4. A/P GIB. The pt is reviewed by Dr Jo. Clear liquids with plan for bowel prep later this PM, proceed with EGD/Colonoscopy 12/[address] Jo. Conitinue to hold AC PPI/Carafate Octreotide. Continue to monitor H/H and need for additional transfusion. Relayed plan to Dr Wood. Monitor. VS,Fishbone, I+O VS, Fishbone, I+O Laboratory Tests 12/16/20 13:53 12/16/20 17:45 12/16/20 23:50 Vital Signs Date Time Temp Pulse Resp B/P (MAP) Pulse Ox O2 Delivery O2 Flow Rate FiO2 12/17/20 07:29 97.1 69 18 102/57 (72) 98 Nasal Cannula 2.0 I&O- Last 24 Hours up to 6 AM 12/17/20 06:00 Intake Total 1910 ml Output Total 900 ml Balance 1010 ml Michelle Johnson Dec 17, 2020 08:50
[2020-12-17] MEDS ORDERED: SENNA 8.6 MG TAB (SENOKOT) PO ONE (10:15)
[2020-12-17] MEDS ORDERED: DOCUSATE SODIUM 100MG CAPSULE PO ONE (10:15)
--- NOTE | 2020-12-17 10:40 | IPNPDOC ---
Subjective Date Seen The patient was seen on 12/17/20. Subjective Chief Complaint/HPI Had a small liquid bowel movement this morning No abdominal pain no nausea or vomiting. Objective Physical Examination General Exam: Positive: Alert, Cooperative, No Acute Distress Eye Exam: Positive: PERRLA, Conjunctiva & lids normal, EOMI; Negative: Sclera icteric ENT Exam: Positive: Atraumatic, Mucous membr. moist/pink, Pharynx Normal Neck Exam: Positive: Supple; Negative: JVD, thyromegaly Chest Exam: Positive: Clear to auscultation, Normal air movement Heart Exam: Positive: Rate Normal, Regular Rhythm, Normal S1, Normal S2; Negative: Murmurs, Rubs Abdomen Exam: Positive: BS Hyperactive, Soft; Negative: Tenderness Extremity Exam: Negative: Clubbing, Cyanosis, Edema Assessment /Plan Assessment 80-year-old male with past medical history of Systolic Congestive heart failure, Mitral valve prolapse, AICD, atrial fibrillation on Coumadin, HTN, HLD is admitted for GIB and acute blood loss anemia. GI bleed with acute blood loss anemia Patient presented with sudden onset melena several times on 12/14/20 On the back ground of Coumadin therapy. INR was 4.0 which was reversed received 5 units of PRBC and 4 FFP HH stable On Pantoprazole, sucralfate and octreotide Last colonoscopy in 2013. Planned for EGD and colonoscopy on 12/18/20 Fall and trauma to nose vasovagal/ orthostatic from acute GIB. Congestive heart failure. With reduced ejection fraction, previous echo in our system from 2013. Last EF was 45% to 50% Has AICD since 2006, hold home beta babita and lisinopril due to hypotension at this time. Hold aspirin for GI bleed. We'll restart statin when cleared to start by mouth meds. Will get new echo Atrial fibrillation. will continue digoxin but hold coreg HTN will hold coreg and ACEI. Hyperkalemia. resolved. Plan/VTE VTE Prophylaxis Ordered?: Yes VS, I&O, 24H, Fishbone Vital Signs/I&O Vital Signs Date Time Temp Pulse Resp B/P (MAP) Pulse Ox O2 Delivery O2 Flow Rate FiO2 12/17/20 07:29 97.1 69 18 102/57 (72) 98 Nasal Cannula 2.0 I&O- Last 24 Hours up to 6 AM 12/17/20 06:00 Intake Total 1910 ml Output Total 900 ml Balance 1010 ml Laboratory Data 24H LABS Laboratory Tests 2 12/16/20 11:29: Bedside Glucose (Misc Panel) 112H 12/16/20 13:53: Nucleated Red Blood Cells % (auto) 0.0, Prothrombin Time 15.2H, Prothromb Time International Ratio 1.17, Activated Partial Thromboplast Time 28.3 12/16/20 16:16: Bedside Glucose (Misc Panel) 111H 12/16/20 17:45: Nucleated Red Blood Cells % (auto) 0.5H 12/16/20 23:50: Nucleated Red Blood Cells % (auto) 0.3H 12/17/20 06:58: Prothrombin Time 14.9H, Prothromb Time International Ratio 1.14, Activated Partial Thromboplast Time 28.0 CBC/BMP Laboratory Tests 12/16/20 13:53 12/16/20 17:45 12/16/20 23:50 Microbiology Microbiology 12/15/20 Respiratory Virus Panel (PCR) ([facility]) - Final, Complete SHAKIR RAMOS MD Dec 17, 2020 10:40
[2020-12-17] MEDS ORDERED: MIRALAX *UNIT DOSE* 17GM PACKET PO ONE (11:00)
--- NOTE | 2020-12-17 11:42 | ECHO ---
DATE OF PROCEDURE: 12/16/2020 Age: 80 Gender: Male Height: 180 cm Weight: 86 kg REFERRING PHYSICIAN: Nancy Wood MD INDICATION: Congestive heart failure. MEASUREMENTS: IVS 1.0 cm LV 5.8 cm LVPW 0.8 cm LA 4.7 cm Aorta 3.5 cm FINDINGS: This study is of fair technical quality. Underlying atrial fibrillation with mildly tachycardic ventricular rate. Left ventricle is mildly dilated. There is no distinct segmental wall motion abnormality, but the quality of the images was fair, so I cannot completely rule that out. Overall, I estimate EF in the neighborhood of 50%, which corresponds to mildly reduced ejection fraction. Right ventricle was poorly seen, but appears grossly normal size. There is severe biatrial enlargement. There is an echo artifact and right-sided heart failure consistent with pacemaker lead. Aortic valve is sclerotic. It appears tricuspid and there is no distinct restriction of mobility. There are also degenerative abnormalities of the mitral valve with mitral annular calcifications, but mobility of leaflets is preserved. Tricuspid and pulmonic valves appear normal. No pericardial effusion is noted. Inferior vena cava was not seen. Aortic root is normal. Aortic arch and abdominal aorta were not visualized. Doppler interrogation of the aortic valve reveals no significant stenosis or insufficiency. There is approximately moderate mitral and tricuspid insufficiency. Calculated pulmonary artery pressure is at minimum in the 40s, assuming normal central venous pressure, which would correspond to moderate pulmonary hypertension. Pulmonic valve is functionally competent. Evaluation of diastolic function is inconclusive due to underlying atrial fibrillation. CONCLUSIONS: 1. Study is of fair technical quality. Atrial fibrillation with rapid ventricular response as an underlying rhythm. 2. Mildly dilated left ventricle with mild global hypokinesis and overall estimated LVEF approximately 50%. 3. Right ventricle does not appear grossly enlarged. 4. Severe biatrial enlargement. 5. Aortic sclerosis with no significant stenosis or insufficiency. 6. Moderate mitral and tricuspid insufficiency. 7. Unable to estimate central venous pressure, but at least moderate pulmonary hypertension. 8. Echo artifacts in right-sided heart chambers consistent with pacemaker lead. MTDD
[2020-12-17 12:00] VITALS: BP 112/68
[2020-12-17] MEDS ORDERED: ONDANSETRON 4MG/2ML VIAL IV PRN (12:05)
[2020-12-17 15:55] VITALS: BP 101/58
[2020-12-17] MEDS ORDERED: MAGNESIUM CITRATE 300 ML BTL PO ONE (17:10)
[2020-12-17 20:00] VITALS: BP 103/58
[2020-12-17] MEDS: DIGOXIN 0.25 MG TAB PO SCH (20:07)
[2020-12-18 00:15] VITALS: BP 102/55
[2020-12-18] MEDS: SUCRALFATE SUSP 1GM/10ML UD PO SCH ×4 (02:00→21:57)
[2020-12-18 04:23] VITALS: BP 103/57
[2020-12-18 05:51] LABS: HEMATOCRIT 30.6 % (42.0-52.0); HEMOGLOBIN 10.1 g/dl (13.5-17.5); MEAN CORPUSCULAR HEMOGLOBIN 31.1 pg (27.0-33.0); MEAN CORPUSCULAR VOLUME 94.2 fl (80.0-96.0); PLATELET COUNT, AUTOMATED 126 10^3/uL (150-450); RED BLOOD COUNT 3.25 10^6/uL (4.30-6.10); WHITE BLOOD COUNT 5.7 10^3/uL (4.0-10.0)
[2020-12-18 06:25] LABS: ALBUMIN 2.9 GM/DL (3.2-5.2); ALT/SGPT 18 U/L (12-78); BILIRUBIN,TOTAL 0.8 MG/DL (0.2-1.0); BLOOD UREA NITROGEN 9 MG/DL (7-18); CARBON DIOXIDE LEVEL 34 MEQ/L (21-32); CHLORIDE LEVEL 109 MEQ/L (98-107); CREATININE FOR GFR 0.92 MG/DL (0.70-1.30); GLOMERULAR FILTRATION RATE > 60.0 (>35); GLUCOSE, FASTING 109 MG/DL (70-100); POTASSIUM SERUM 3.6 MEQ/L (3.5-5.1); SODIUM LEVEL 144 MEQ/L (136-145); TOTAL PROTEIN 5.7 GM/DL (6.4-8.2)
[2020-12-18 08:00] VITALS: BP 106/50
[2020-12-18] MEDS: PANTOPRAZOLE 40MG VIAL (C9113 PER 1) IV SCH (08:30)
--- NOTE | 2020-12-18 08:39 | IPNPDOC ---
Subjective Date Seen The patient was seen on 12/18/20. Subjective Chief Complaint/HPI No issues overnight. Now having brown liquid stools. No abdominal pain or vomiting. Will be going for EGD and Colonoscopy. Doing colon prep now. Objective Physical Examination General Exam: Positive: Alert, Cooperative, No Acute Distress Eye Exam: Positive: PERRLA, Conjunctiva & lids normal, EOMI; Negative: Sclera icteric ENT Exam: Positive: Atraumatic, Mucous membr. moist/pink, Pharynx Normal Neck Exam: Positive: Supple; Negative: JVD, thyromegaly Chest Exam: Positive: Clear to auscultation, Normal air movement Heart Exam: Positive: Rate Normal, Regular Rhythm, Normal S1, Normal S2; Negative: Murmurs, Rubs Abdomen Exam: Positive: BS Hyperactive, Soft; Negative: Tenderness Extremity Exam: Negative: Clubbing, Cyanosis, Edema Skin Exam: Positive: Nl turgor and temperature; Negative: Rash, Breakdown Assessment /Plan Assessment 80-year-old male with past medical history of Systolic Congestive heart failure, Mitral valve prolapse, AICD, atrial fibrillation on Coumadin, HTN, HLD is admitted for GIB and acute blood loss anemia. GI bleed with acute blood loss anemia Patient presented with sudden onset melena several times on 12/14/20 On the back ground of Coumadin therapy. INR was 4.0 which was reversed received 5 units of PRBC and 4 FFP HH stable On Pantoprazole, sucralfate and octreotide Last colonoscopy in 2013. Planned for EGD and colonoscopy on 12/18/20 Fall and trauma to nose vasovagal/ orthostatic from acute GIB. Congestive heart failure. With reduced ejection fraction, previous echo in our system from 2013. Last EF was 45% to 50% Has AICD since 2006, hold home beta babita and lisinopril due to hypotension at this time. Hold aspirin for GI bleed. We'll restart statin when cleared to start by mouth meds. Will get new echo Atrial fibrillation. will continue digoxin but hold coreg HTN will hold coreg and ACEI. Hyperkalemia. resolved. Plan/VTE VTE Prophylaxis Ordered?: Yes VS, I&O, 24H, Fishbone Vital Signs/I&O Vital Signs Date Time Temp Pulse Resp B/P (MAP) Pulse Ox O2 Delivery O2 Flow Rate FiO2 12/18/20 08:00 97.1 63 18 106/50 (68) 100 Room Air 12/17/20 12:00 I&O- Last 24 Hours up to 6 AM 12/18/20 06:00 Intake Total 1790 ml Output Total 575 ml Balance 1215 ml Laboratory Data 24H LABS Laboratory Tests 2 12/18/20 05:31: Nucleated Red Blood Cells % (auto) 0.0, Anion Gap 1L, Glomerular Filtration Rate > 60.0, Calcium Level 8.0L, Total Bilirubin 0.8#, Aspartate Amino Transf (AST/SGOT) 18, Alanine Aminotransferase (ALT/SGPT) 18, Alkaline Phosphatase 73, Total Protein 5.7L, Albumin 2.9L, Albumin/Globulin Ratio 1.0 CBC/BMP Laboratory Tests 12/18/20 05:31 Microbiology Microbiology 12/15/20 Respiratory Virus Panel (PCR) ([facility]) - Final, Complete SHAIKR RAMOS MD Dec 18, 2020 08:39
[2020-12-18] MEDS ORDERED: MAGNESIUM CITRATE 300 ML BTL PO ONE (09:00)
[2020-12-18 10:29] LABS: RSV AMPLIFICATION NEGATIVE (NEGATIVE)
[2020-12-18 12:00] VITALS: BP 105/68
[2020-12-18] MEDS ORDERED: propofoL 500 MG/50 ML VIAL As Ordered ONE (14:02)
[2020-12-18] MEDS ORDERED: LIDOCAINE 2% 100MG/5ML SDV (FOR ANES.) As Ordered ONE (14:02)
[2020-12-18] MEDS ORDERED: fentaNYL 100 MCG/2 ML INJECTION (J3010) As Ordered ONE (15:08)
--- NOTE | 2020-12-18 15:19 | ROOR ---
Patient Name: Jacek Branham Procedure Date: 12/18/2020 3:01 PM Date of : 1940 Age: 80 Room: [facility] Gender: Male Note Status: Finalized Procedure: Upper GI endoscopy Indications: Recent gastrointestinal bleeding Providers: Clovis Jo Jr, MD Referring MD: 2. Inpatient 2. Inpatient Requesting Provider: Medicines: Propofol per Anesthesia Complications: No immediate complications. Procedure: Pre-Anesthesia Assessment: - Prior to the procedure, a History and Physical was performed, and patient medications and allergies were reviewed. The patient is competent. The risks and benefits of the procedure and the sedation options and risks were discussed with the patient. All questions were answered and informed consent was obtained. Patient identification and proposed procedure were verified by the physician and the nurse in the pre-procedure area and in the procedure room. Mental Status Examination: alert and oriented. Airway Examination: normal oropharyngeal airway and neck mobility. Respiratory Examination: clear to auscultation. CV Examination: normal. ASA Grade Assessment: III - A patient with severe systemic disease. After reviewing the risks and benefits, the patient was deemed in satisfactory condition to undergo the procedure. The anesthesia plan was to use moderate sedation / analgesia (conscious sedation). Immediately prior to administration of medications, the patient was re-assessed for adequacy to receive sedatives. The heart rate, respiratory rate, oxygen saturations, blood pressure, adequacy of pulmonary ventilation, and response to care were monitored throughout the procedure. The physical status of the patient was re-assessed after the procedure. The Endoscope was introduced through the mouth, and advanced to the second part of duodenum. The upper GI endoscopy was accomplished without difficulty. The patient tolerated the procedure well. Findings: The upper third of the esophagus, middle third of the esophagus and lower third of the esophagus were normal. Scattered moderate inflammation characterized by congestion (edema), erythema and granularity was found in the gastric body and in the gastric antrum. The gastroesophageal junction, cardia, gastric fundus, prepyloric region of the stomach and pylorus were normal. The duodenal bulb, first portion of the duodenum and second portion of the duodenum were normal. Impression: - Normal upper third of esophagus, middle third of esophagus and lower third of esophagus. - Gastritis. - Normal gastroesophageal junction, cardia, gastric fundus, prepyloric region of the stomach and pylorus. - Normal duodenal bulb, first portion of the duodenum and second portion of the duodenum. - No specimens collected. Recommendation: - Discharge patient to home (ambulatory). - Return to my office at appointment to be scheduled. Procedure Code(s): --- Professional --- 84298, Esophagogastroduodenoscopy, flexible, transoral; diagnostic, including collection of specimen(s) by brushing or washing, when performed (separate procedure) Diagnosis Code(s): --- Professional --- K29.70, Gastritis, unspecified, without bleeding K92.2, Gastrointestinal hemorrhage, unspecified CPT copyright 2019 [employer]. All rights reserved. The codes documented in this report are preliminary and upon maltster review may be revised to meet current compliance requirements. Clovis Jo MD Clovis Jo Jr, MD 12/18/2020 3:18:33 PM Electronically signed by Clovis Jo Jr, MD Number of Addenda: 0 Note Initiated On: 12/18/2020 3:01 PM Estimated Blood Loss: Estimated blood loss: none.
[2020-12-18] MEDS ORDERED: PHENYLephrine 500MCG 5ML (100MCG/ML) SYRINGE As Ordered ONE (15:43)
[2020-12-18] MEDS ORDERED: ePHEDrine SULFATE 25 MG/5 ML(5MG/ML) SYRINGE As Ordered ONE (15:43)
--- NOTE | 2020-12-18 15:54 | ROOR ---
Patient Name: Jacek Branham Procedure Date: 12/18/2020 3:02 PM Date of : 1940 Age: 80 Room: [facility] Gender: Male Note Status: Finalized Procedure: Colonoscopy Indications: Rectal bleeding Providers: Clovis Jo Jr, MD Referring MD: 2. Inpatient 2. Inpatient Requesting Provider: Medicines: Propofol per Anesthesia Complications: No immediate complications. Procedure: Pre-Anesthesia Assessment: - Prior to the procedure, a History and Physical was performed, and patient medications and allergies were reviewed. The patient is competent. The risks and benefits of the procedure and the sedation options and risks were discussed with the patient. All questions were answered and informed consent was obtained. Patient identification and proposed procedure were verified by the physician and the nurse in the pre-procedure area and in the procedure room. Mental Status Examination: alert and oriented. Airway Examination: normal oropharyngeal airway and neck mobility. Respiratory Examination: clear to auscultation. CV Examination: normal. ASA Grade Assessment: II - A patient with mild systemic disease. After reviewing the risks and benefits, the patient was deemed in satisfactory condition to undergo the procedure. The anesthesia plan was to use moderate sedation / analgesia (conscious sedation). Immediately prior to administration of medications, the patient was re-assessed for adequacy to receive sedatives. The heart rate, respiratory rate, oxygen saturations, blood pressure, adequacy of pulmonary ventilation, and response to care were monitored throughout the procedure. The physical status of the patient was re-assessed after the procedure. The Colonoscope was introduced through the anus and advanced to the cecum, identified by appendiceal orifice and ileocecal valve. The colonoscopy was performed without difficulty. The patient tolerated the procedure well. The quality of the bowel preparation was poor. Findings: The rectum, recto-sigmoid colon, sigmoid colon, descending colon, transverse colon, cecum, appendiceal orifice and ileocecal valve appeared normal. A few small-mouthed diverticula were found in the sigmoid colon. Non-bleeding external and internal hemorrhoids were found during perianal exam and during endoscopy. The hemorrhoids were Grade II (internal hemorrhoids that prolapse but reduce spontaneously) and Grade III (internal hemorrhoids that prolapse but require manual reduction). A large polyp was found in the proximal ascending colon. The polyp was semi-sessile. The polyp was removed with a piecemeal technique using a hot snare. Polyp resection was incomplete, and the resected tissue was partially retrieved. Coagulation for destruction of remaining portion of lesion using hot biopsy forceps was successful. To close a defect after polypectomy, one hemostatic clip was successfully placed. There was no bleeding at the end of the procedure. Impression: - Preparation of the colon was poor. - The rectum, recto-sigmoid colon, sigmoid colon, descending colon, transverse colon, cecum, appendiceal orifice and ileocecal valve are normal. - Diverticulosis in the sigmoid colon. - Non-bleeding external and internal hemorrhoids. - One large polyp in the proximal ascending colon, removed piecemeal using a hot snare. Polyp resection was incomplete, and the resected tissue was partially retrieved. Treated with hot biopsy forceps. Recommendation: - Return patient to hospital [facility] for ongoing care. - Repeat colonoscopy in 6 months to review the polypectomy site. Procedure Code(s): --- Professional --- 61805, Colonoscopy, flexible; with removal of tumor(s), polyp(s), or other lesion(s) by snare technique Diagnosis Code(s): --- Professional --- K64.2, Third degree hemorrhoids K63.5, Polyp of colon K62.5, Hemorrhage of anus and rectum K57.30, Diverticulosis of large intestine without perforation or abscess without bleeding CPT copyright 2019 [employer]. All rights reserved. The codes documented in this report are preliminary and upon ekg monitor review may be revised to meet current compliance requirements. Clovis Jo MD Clovis Jo Jr, MD 12/18/2020 3:54:35 PM Electronically signed by Clovis Jo Jr, MD Number of Addenda: 0 Note Initiated On: 12/18/2020 3:02 PM Estimated Blood Loss: Estimated blood loss: none. Estimated blood loss: none.
[2020-12-18 16:28] VITALS: BP 121/67
[2020-12-18 20:04] VITALS: BP 106/58
[2020-12-18] MEDS: OMEPRAZOLE 20 MG CAP PO SCH (21:56)
[2020-12-18] MEDS: DIGOXIN 0.25 MG TAB PO SCH (21:57)
[2020-12-19 00:19] VITALS: BP 102/60
[2020-12-19] MEDS: SUCRALFATE SUSP 1GM/10ML UD PO SCH ×3 (02:39→13:21)
[2020-12-19 05:13] VITALS: BP 111/58
[2020-12-19 07:50] LABS: HEMATOCRIT 29.5 % (42.0-52.0); HEMOGLOBIN 9.5 g/dl (13.5-17.5); MEAN CORPUSCULAR HEMOGLOBIN 30.5 pg (27.0-33.0); MEAN CORPUSCULAR HGB CONC 32.2 g/dl (32.0-36.5); MEAN CORPUSCULAR VOLUME 94.9 fl (80.0-96.0); PLATELET COUNT, AUTOMATED 145 10^3/uL (150-450); RED BLOOD COUNT 3.11 10^6/uL (4.30-6.10)
[2020-12-19 08:00] VITALS: BP 120/65
[2020-12-19] MEDS: OMEPRAZOLE 20 MG CAP PO SCH (08:01)
[2020-12-19 08:14] LABS: ALBUMIN 2.7 GM/DL (3.2-5.2); ALT/SGPT 17 U/L (12-78); BILIRUBIN,TOTAL 0.5 MG/DL (0.2-1.0); BLOOD UREA NITROGEN 9 MG/DL (7-18); CALCIUM LEVEL 7.6 MG/DL (8.8-10.2); CARBON DIOXIDE LEVEL 29 MEQ/L (21-32); CHLORIDE LEVEL 107 MEQ/L (98-107); CREATININE FOR GFR 0.78 MG/DL (0.70-1.30); GLOMERULAR FILTRATION RATE > 60.0 (>35); GLUCOSE, FASTING 82 MG/DL (70-100); POTASSIUM SERUM 3.7 MEQ/L (3.5-5.1); SODIUM LEVEL 144 MEQ/L (136-145); TOTAL PROTEIN 5.1 GM/DL (6.4-8.2)
[2020-12-19] MEDS ORDERED: SUCR1TA PO (08:24)
[2020-12-19] MEDS ORDERED: OMEP-218 PO (08:24)
--- NOTE | 2020-12-19 09:11 | IPNPDOC ---
Text Note Date of Service The patient was seen on 12/19/20. NOTE General Surgery. Dr Jo. The pt is a 80 yo male on AC for H/O Afib who presented with rectal bleeding and had several bloody bowel movements. He ended up standing up and got orthostatic, fell over and had a laceration on his nose. Admitted with acute GIB, S/P 5 u PRBC and 4 units FFP. AC on hold, INR 4.05 on admission. The pt is S/P EGD/colonoscopy as per Dr. Jo 12/18/20. This morning, the patient states he is feeling well, he is eating his breakfast. He denies any abdominal pain, nausea, vomiting. No bowel movements today, the patient reports no further bleeding. Awake and alert sitting up in bed, eating breakfast. Blood pressure 120/65 heart rate 86, respiratory rate 20, 94% room air. MMM Lungs CTA S1S2 irreg irreg Abdomen Soft and ND, NT BS present. Extremities, no edema. H/H this morning 9.5/29.5, c/w 10.1/30.6 yesterday. A/P GIB. The pt is reviewed by Dr Jo. The patient is status post EGD 12/18/20 indicating gastritis. Status post colonoscopy 12/18/20 indicating poor prep, diverticulosis, nonbleeding external and internal hemorrhoids one large polyp in the proximal ascending colon removed incomplete. Plan is to repeat colonoscopy in 6 months to review the polypectomy site. Hematocrit is stable compared with yesterday and the patient has had no further bleeding. From surgery standpoint, the patient would be okay for discharge today. Plan for follow-up with Dr. Jo in one week. Would recommend no anticoagulation until follow-up with Dr. Jo. Continue PPI Relayed plan to Dr Wood. Taim ALBERT, I+O Tami ALBERT, I+O Laboratory Tests 12/19/20 05:34 Vital Signs Date Time Temp Pulse Resp B/P (MAP) Pulse Ox O2 Delivery O2 Flow Rate FiO2 12/19/20 08:00 97.7 86 20 120/65 (83) 94 Room Air 12/17/20 12:00 I&O- Last 24 Hours up to 6 AM 12/19/20 05:59 Intake Total 720 ml Output Total 600 ml Balance 120 ml Michelle Johnson Dec 19, 2020 09:11
[2020-12-19 12:00] VITALS: BP 108/55
== END 2020-12-19 14:32 | disposition home health service (06) | DRG 813 ==
LOC: M ED 03:11 → M ED INP 08:01 → M PCU 11:20
PROVIDERS: ADMIT Internal Medicine; ATTEND Internal Medicine Nephrology
PROC: 30233N1 Transfusion of Nonautologous Red Blood Cells into Peripheral Vein, Percutaneous Approach (ICD-10-PCS; 2020-12-15)
PROC: 30233K1 Transfusion of Nonautologous Frozen Plasma into Peripheral Vein, Percutaneous Approach (ICD-10-PCS; 2020-12-15)
PROC: 0DJ08ZZ Inspection of Upper Intestinal Tract, Via Natural or Artificial Opening Endoscopic (ICD-10-PCS; 2020-12-18)
PROC: 0DBL8ZX Excision of Transverse Colon, Via Natural or Artificial Opening Endoscopic, Diagnostic (ICD-10-PCS; principal; 2020-12-18 14:10)
DX: D68.32 Hemorrhagic disorder due to extrinsic circulating anticoagulants (principal); K62.5 Hemorrhage of anus and rectum; D62 Acute posthemorrhagic anemia; I50.9 Heart failure, unspecified; I48.91 Unspecified atrial fibrillation; I25.10 Atherosclerotic heart disease of native coronary artery without angina pectoris; E87.5 Hyperkalemia; K57.30 Diverticulosis of large intestine without perforation or abscess without bleeding; K64.1 Second degree hemorrhoids; K64.2 Third degree hemorrhoids; K63.5 Polyp of colon; K29.70 Gastritis, unspecified, without bleeding; I34.1 Nonrheumatic mitral (valve) prolapse; Z95.810 Presence of automatic (implantable) cardiac defibrillator; Z90.49 Acquired absence of other specified parts of digestive tract; Z79.01 Long term (current) use of anticoagulants; Z79.899 Other long term (current) drug therapy; Z79.82 Long term (current) use of aspirin

== ENCOUNTER → 2021-01-13 | Outpatient (CLI) | payer MEDICARE ==
[~2021-01-13] MED LIST changes: +BAYE81TA10 PO; +CARV25TA PO; +DIGO0.253 PO; +JANT2.5T PO; +MAGN64TASA PO; +OMEP-218 PO; +RAMI1CAP24 PO; +SUCR1TA PO
[2021-01-13 16:40] LABS: BASO % 0.5 % (0.0-1.0); EOS # 0.1 10^3/uL (0.0-0.5); EOS % 2.8 % (0.0-3.0); HEMATOCRIT 36.3 % (42.0-52.0); HEMOGLOBIN 11.5 g/dl (13.5-17.5); LYMPH # 0.7 10^3/uL (1.5-5.0); LYMPH % 18.3 % (24.0-44.0); MEAN CORPUSCULAR HEMOGLOBIN 30.6 pg (27.0-33.0); MEAN CORPUSCULAR HGB CONC 31.7 g/dl (32.0-36.5); MEAN CORPUSCULAR VOLUME 96.5 fl (80.0-96.0); MONO # 0.4 10^3/uL (0.0-0.8); MONO % 9.4 % (2.0-8.0); NEUTROPHILS # 2.7 10^3/uL (1.5-8.5); NEUTROPHILS % 68.5 % (36.0-66.0); PLATELET COUNT, AUTOMATED 176 10^3/uL (150-450); RED BLOOD COUNT 3.76 10^6/uL (4.30-6.10); WHITE BLOOD COUNT 3.9 10^3/uL (4.0-10.0)
== END ==
LOC: M WUC 15:25
PROVIDERS: ATTEND Physician Assistant
DX: D64.9 Anemia, unspecified (principal); I95.9 Hypotension, unspecified

== ENCOUNTER → 2021-06-27 | Outpatient (CLI) | payer MEDICARE ==
[~2021-06-27] MED LIST changes: +FISH1000 PO
== END ==
LOC: M LABSMTC 09:30
PROVIDERS: ATTEND Anesthesiology
DX: Z01.812 Encounter for preprocedural laboratory examination (principal); Z20.822 Contact with and (suspected) exposure to COVID-19

== ENCOUNTER 2021-07-02 08:32 | Day surgery (SDC) | payer MEDICARE ==
[~2021-07-02] VITALS: Ht 180.3 cm; Wt 80.5 kg
[~2021-07-02 08:32] MED LIST changes: +LIDOCAINE 2% 100MG/5ML SDV (FOR ANES.) As Ordered ONE; +NS 1,000 ML IV ONE; +propofoL 200 MG/20 ML VIAL As Ordered ONE
--- NOTE | 2021-07-02 10:02 | ROOR ---
Patient Name: Jacek Branham Procedure Date: 07/02/2021 9:13 AM Date of : 1940 Age: 81 Room: [facility] Gender: Male Note Status: Finalized Procedure: Colonoscopy Indications: High risk colon cancer surveillance: Personal history of colonic polyps Providers: Clovis Jo Jr, MD Referring MD: JASEN SEVILLA Requesting Provider: Medicines: Propofol per Anesthesia Complications: No immediate complications. Procedure: Pre-Anesthesia Assessment: - Prior to the procedure, a History and Physical was performed, and patient medications and allergies were reviewed. The patient is competent. The risks and benefits of the procedure and the sedation options and risks were discussed with the patient. All questions were answered and informed consent was obtained. Patient identification and proposed procedure were verified by the physician and the nurse in the pre-procedure area and in the procedure room. Mental Status Examination: alert and oriented. Airway Examination: normal oropharyngeal airway and neck mobility. Respiratory Examination: clear to auscultation. CV Examination: normal. ASA Grade Assessment: II - A patient with mild systemic disease. After reviewing the risks and benefits, the patient was deemed in satisfactory condition to undergo the procedure. The anesthesia plan was to use moderate sedation / analgesia (conscious sedation). Immediately prior to administration of medications, the patient was re-assessed for adequacy to receive sedatives. The heart rate, respiratory rate, oxygen saturations, blood pressure, adequacy of pulmonary ventilation, and response to care were monitored throughout the procedure. The physical status of the patient was re-assessed after the procedure. The Colonoscope was introduced through the anus and advanced to the cecum, identified by appendiceal orifice and ileocecal valve. The colonoscopy was performed without difficulty. The patient tolerated the procedure well. The quality of the bowel preparation was poor. Findings: The rectum, recto-sigmoid colon, descending colon, cecum and appendiceal orifice appeared normal. A large polyp was found in the ascending colon. The polyp was sessile. Polypectomy was attempted, initially using a hot snare. Polyp resection was incomplete with this device. This intervention then required a different device and polypectomy technique. The polyp was removed with a hot snare. Polyp resection was incomplete, and the resected tissue was partially retrieved. Coagulation for destruction of remaining portion of lesion using hot biopsy forceps was successful. Multiple small and large-mouthed diverticula were found in the sigmoid colon. Impression: - Preparation of the colon was poor. - The rectum, recto-sigmoid colon, descending colon, cecum and appendiceal orifice are normal. - One large polyp in the ascending colon, removed with a hot snare. Polyp resection was incomplete, and the resected tissue was partially retrieved. Treated with hot biopsy forceps. - Diverticulosis in the sigmoid colon. Recommendation: - Discharge patient to home (ambulatory). - Repeat colonoscopy in 1 year for surveillance. - Telephone my office for pathology results in 1 week. Procedure Code(s): --- Professional --- 87085, Colonoscopy, flexible; with removal of tumor(s), polyp(s), or other lesion(s) by snare technique Diagnosis Code(s): --- Professional --- Z86.010, Personal history of colonic polyps K63.5, Polyp of colon K57.30, Diverticulosis of large intestine without perforation or abscess without bleeding CPT copyright 2019 [employer]. All rights reserved. The codes documented in this report are preliminary and upon certified professional coder review may be revised to meet current compliance requirements. Clovis Jo MD Clovis Jo Jr, MD 07/02/2021 10:02:15 AM Electronically signed by Clovis Jo Jr, MD Number of Addenda: 0 Note Initiated On: 07/02/2021 9:13 AM Estimated Blood Loss: Estimated blood loss: none.
[2021-07-02 10:25] VITALS: BP 106/56
== END 2021-07-02 10:50 | disposition home or self-care (01) ==
LOC: M OPP 08:32
PROVIDERS: ATTEND Surgery
DX: Z12.11 Encounter for screening for malignant neoplasm of colon (principal); Z86.010 Personal history of colon polyps; D12.2 Benign neoplasm of ascending colon; K57.30 Diverticulosis of large intestine without perforation or abscess without bleeding; Z79.82 Long term (current) use of aspirin; Z79.899 Other long term (current) drug therapy

== ENCOUNTER → 2022-01-16 | Outpatient (CLI) | payer MEDICARE ==
[~2022-01-16] MED LIST changes: -LIDOCAINE 2% 100MG/5ML SDV (FOR ANES.) As Ordered ONE; -NS 1,000 ML IV ONE; +OMEP-173 PO; -OMEP-218 PO; -propofoL 200 MG/20 ML VIAL As Ordered ONE
[2022-01-16 12:00] LABS: BASO % 0.6 % (0.0-1.0); EOS # 0.1 10^3/uL (0.0-0.5); EOS % 2.2 % (0.0-3.0); HEMATOCRIT 39.4 % (42.0-52.0); HEMOGLOBIN 13.3 g/dl (13.5-17.5); LYMPH # 0.9 10^3/uL (1.5-5.0); LYMPH % 17.3 % (24.0-44.0); MEAN CORPUSCULAR HEMOGLOBIN 30.9 pg (27.0-33.0); MEAN CORPUSCULAR HGB CONC 33.8 g/dl (32.0-36.5); MEAN CORPUSCULAR VOLUME 91.4 fl (80.0-96.0); MONO # 0.4 10^3/uL (0.0-0.8); MONO % 7.8 % (2.0-8.0); NEUTROPHILS # 3.9 10^3/uL (1.5-8.5); NEUTROPHILS % 71.7 % (36.0-66.0); PLATELET COUNT, AUTOMATED 188 10^3/uL (150-450); RED BLOOD COUNT 4.31 10^6/uL (4.30-6.10); WHITE BLOOD COUNT 5.4 10^3/uL (4.0-10.0)
[2022-01-16 12:24] LABS: ALBUMIN 3.4 GM/DL (3.2-5.2); ALT/SGPT 27 U/L (12-78); BILIRUBIN,TOTAL 0.7 MG/DL (0.2-1.0); BLOOD UREA NITROGEN 32 MG/DL (7-18); CALCIUM LEVEL 8.9 MG/DL (8.8-10.2); CARBON DIOXIDE LEVEL 33 MEQ/L (21-32); CHLORIDE LEVEL 105 MEQ/L (98-107); CREATININE FOR GFR 1.22 MG/DL (0.70-1.30); GLOMERULAR FILTRATION RATE > 60.0 (>35); GLUCOSE, FASTING 99 MG/DL (70-100); SODIUM LEVEL 137 MEQ/L (136-145); TOTAL PROTEIN 7.1 GM/DL (6.4-8.2)
== END ==
LOC: M LAB 11:21
DX: I48.20 Chronic atrial fibrillation, unspecified (principal); D64.9 Anemia, unspecified; I42.9 Cardiomyopathy, unspecified

== ENCOUNTER → 2022-04-22 | Outpatient (CLI) | payer MEDICARE ==
[2022-04-22 16:19] LABS: BASO % 0.6 % (0.0-1.0); EOS # 0.2 10^3/uL (0.0-0.5); EOS % 3.2 % (0.0-3.0); HEMATOCRIT 38.5 % (42.0-52.0); HEMOGLOBIN 12.4 g/dl (13.5-17.5); LYMPH # 0.8 10^3/uL (1.5-5.0); LYMPH % 16.5 % (24.0-44.0); MEAN CORPUSCULAR HEMOGLOBIN 32.3 pg (27.0-33.0); MEAN CORPUSCULAR HGB CONC 32.2 g/dl (32.0-36.5); MEAN CORPUSCULAR VOLUME 100.3 fl (80.0-96.0); MONO # 0.4 10^3/uL (0.0-0.8); NEUTROPHILS # 3.6 10^3/uL (1.5-8.5); NEUTROPHILS % 71.3 % (36.0-66.0); PLATELET COUNT, AUTOMATED 160 10^3/uL (150-450); RED BLOOD COUNT 3.84 10^6/uL (4.30-6.10)
[2022-04-22 16:40] LABS: ALBUMIN 3.8 GM/DL (3.2-5.2); ALT/SGPT 27 U/L (12-78); BILIRUBIN,TOTAL 0.8 MG/DL (0.2-1.0); BLOOD UREA NITROGEN 17 MG/DL (7-18); CALCIUM LEVEL 9.3 MG/DL (8.8-10.2); CARBON DIOXIDE LEVEL 33 MEQ/L (21-32); CHLORIDE LEVEL 106 MEQ/L (98-107); CREATININE FOR GFR 0.88 MG/DL (0.70-1.30); GLOMERULAR FILTRATION RATE > 60.0 (>35); GLUCOSE, FASTING 79 MG/DL (70-100); NT-PRO BNP 1984 PG/ML (<450); POTASSIUM SERUM 4.1 MEQ/L (3.5-5.1); SODIUM LEVEL 141 MEQ/L (136-145); TOTAL PROTEIN 6.4 GM/DL (6.4-8.2)
== END ==
LOC: M WUC 14:14
PROVIDERS: ATTEND Nurse Practitioner Family
DX: I50.23 Acute on chronic systolic (congestive) heart failure (principal); I42.0 Dilated cardiomyopathy; I48.11 Longstanding persistent atrial fibrillation

== ENCOUNTER → 2022-05-18 | Outpatient (CLI) | payer MEDICARE ==
[2022-05-18 17:10] LABS: ALBUMIN 3.5 GM/DL (3.2-5.2); ALT/SGPT 24 U/L (12-78); BILIRUBIN,TOTAL 0.8 MG/DL (0.2-1.0); BLOOD UREA NITROGEN 19 MG/DL (7-18); CALCIUM LEVEL 8.5 MG/DL (8.8-10.2); CARBON DIOXIDE LEVEL 29 MEQ/L (21-32); CHLORIDE LEVEL 106 MEQ/L (98-107); CREATININE FOR GFR 0.91 MG/DL (0.70-1.30); GLOMERULAR FILTRATION RATE > 60.0 (>35); GLUCOSE, FASTING 112 MG/DL (70-100); NT-PRO BNP 1273 PG/ML (<450); POTASSIUM SERUM 4.5 MEQ/L (3.5-5.1); SODIUM LEVEL 139 MEQ/L (136-145); TOTAL PROTEIN 6.6 GM/DL (6.4-8.2)
== END ==
LOC: M WUC 14:02
PROVIDERS: ATTEND Nurse Practitioner Family
DX: I50.22 Chronic systolic (congestive) heart failure (principal)

== ENCOUNTER → 2022-08-25 | Outpatient (CLI) | payer MEDICARE ==
[2022-08-25 13:02] LABS: HEMATOCRIT 39.9 % (42.0-52.0); HEMOGLOBIN 13.1 g/dl (13.5-17.5); MEAN CORPUSCULAR HEMOGLOBIN 31.8 pg (27.0-33.0); MEAN CORPUSCULAR HGB CONC 32.8 g/dl (32.0-36.5); MEAN CORPUSCULAR VOLUME 96.8 fl (80.0-96.0); PLATELET COUNT, AUTOMATED 152 10^3/uL (150-450); RED BLOOD COUNT 4.12 10^6/uL (4.30-6.10); WHITE BLOOD COUNT 5.2 10^3/uL (4.0-10.0)
[2022-08-25 14:05] LABS: ALBUMIN 3.4 GM/DL (3.2-5.2); ALT/SGPT 26 U/L (12-78); BILIRUBIN,TOTAL 0.8 MG/DL (0.2-1.0); BLOOD UREA NITROGEN 16 MG/DL (7-18); CARBON DIOXIDE LEVEL 30 MEQ/L (21-32); CHLORIDE LEVEL 105 MEQ/L (98-107); CHOLESTEROL LEVEL 108 MG/DL (<200); CHOLESTEROL RISK RATIO 2.634 (<5); CREATININE FOR GFR 0.78 MG/DL (0.70-1.30); GLOMERULAR FILTRATION RATE > 60.0 (>35); GLUCOSE, FASTING 100 MG/DL (70-100); HDL CHOLESTEROL 41 MG/DL (>40); LDL CHOLESTEROL 57 MG/DL (<100); NON-HDL-C 67 MG/DL; SODIUM LEVEL 140 MEQ/L (136-145); TOTAL PROTEIN 6.7 GM/DL (6.4-8.2); TRIGLYCERIDES LEVEL 52 MG/DL (<150)
== END ==
LOC: M WUC 08:55
PROVIDERS: ATTEND Nurse Practitioner Family
DX: E78.2 Mixed hyperlipidemia (principal); I25.5 Ischemic cardiomyopathy; I48.20 Chronic atrial fibrillation, unspecified

== ENCOUNTER 2023-03-10 08:46 | Day surgery (SDC) | payer MEDICARE ==
[~2023-03-10] VITALS: Ht 180.3 cm; Wt 84.1 kg
[~2023-03-10 08:46] MED LIST changes: +FINA5TAB2 PO; +FURO20TA2 PO; +NS 1,000 ML IV ONE; +OMEGCAP4 PO; +RAMI1CAP22 PO; +TAMS1CAP17 PO; +WARF-18 PO
[2023-03-10] MEDS ORDERED: fentaNYL 100 MCG/2 ML INJECTION As Ordered ONE (10:05)
[2023-03-10] MEDS ORDERED: LIDOCAINE 2% 100MG/5ML SDV (FOR ANES.) As Ordered ONE (10:05)
[2023-03-10] MEDS ORDERED: propofoL 200 MG/20 ML VIAL As Ordered ONE (10:05)
[2023-03-10] MEDS ORDERED: PHENYLephrine 500MCG 5ML (100MCG/ML) SYRINGE As Ordered ONE (10:27)
[2023-03-10 11:00] VITALS: BP 113/72
== END 2023-03-10 11:30 | disposition home or self-care (01) ==
LOC: M OPP 08:46
PROVIDERS: ATTEND Surgery
DX: Z12.11 Encounter for screening for malignant neoplasm of colon (principal); Z86.010 Personal history of colon polyps; D12.6 Benign neoplasm of colon, unspecified; K57.30 Diverticulosis of large intestine without perforation or abscess without bleeding; Z79.01 Long term (current) use of anticoagulants; Z79.899 Other long term (current) drug therapy; Z95.810 Presence of automatic (implantable) cardiac defibrillator
CPT/HCPCS: 45384; 88305; J2370; J3010

== ENCOUNTER → 2023-11-16 | Outpatient (REF) | payer MEDICARE ==
[~2023-11-16] MED LIST changes: -NS 1,000 ML IV ONE
[2023-11-16 19:10] LABS: ALBUMIN 2.9 G/DL (3.2-5.2); BILIRUBIN,TOTAL 0.6 MG/DL (0.3-1.2); CALCIUM LEVEL 8.9 MG/DL (8.3-10.6); CREATININE FOR GFR 1.32 MG/DL (0.70-1.30); POTASSIUM SERUM 5.1 MMOL/L (3.5-5.1); TOTAL PROTEIN 7.2 G/DL (5.7-8.2)
== END ==
LOC: M LABWUC 16:17
PROVIDERS: ATTEND Nurse Practitioner Family
DX: I42.0 Dilated cardiomyopathy (principal); I48.11 Longstanding persistent atrial fibrillation; I47.29 Other ventricular tachycardia

== ENCOUNTER → 2023-11-28 | Outpatient (CLI) | payer MEDICARE | LOC: M WHC 12:57 | PROVIDERS: ATTEND Orthopaedic Surgery | DX: M81.6 Localized osteoporosis [Lequesne] (principal) ==

== ENCOUNTER → 2023-12-30 | Outpatient (CLI) | payer MEDICARE ==
[~2023-12-30] MED LIST changes: +GASTROGRAFIN SOLUTION 30ML As Ordered ONE; +ISOVUE-370 76% 100ML VIAL As Ordered ONE
== END ==
LOC: M RAD 12:14
PROVIDERS: ATTEND Family Medicine
DX: K76.89 Other specified diseases of liver (principal); N13.4 Hydroureter; R63.4 Abnormal weight loss; Z90.89 Acquired absence of other organs
CPT/HCPCS: 71260; 74178; Q9963; Q9967

== ENCOUNTER → 2024-01-16 | Outpatient (CLI) | payer MEDICARE ==
[~2024-01-16] MED LIST changes: -GASTROGRAFIN SOLUTION 30ML As Ordered ONE; -ISOVUE-370 76% 100ML VIAL As Ordered ONE
== END ==
LOC: M PLARAD 13:02
PROVIDERS: ATTEND Family Medicine
DX: R93.5 Abnormal findings on diagnostic imaging of other abdominal regions, including retroperitoneum (principal); R63.4 Abnormal weight loss; N13.1 Hydronephrosis with ureteral stricture, not elsewhere classified
CPT/HCPCS: 78815; A9552